=== PATIENT | male | born 1950 | race African-American/Black ===

== ENCOUNTER 2016-11-06 22:27 | Emergency (ER) | payer MEDICARE, MEDICAID ==
[~2016-11-06] VITALS: Ht 175.3 cm; Wt 83.5 kg
[~2016-11-06 22:27] MED LIST: ASTEPRO205.5 MCG1 NS; CELEBREX100 MG ORAL; CIPRO HC OTIC S10 M1 OT; FLOMAX0.4 MG ORAL; JANUVIA25 MG ORAL; LEVEMIR FL100 UNIT/1 SUBQ; MECLIZINE HCL25 MG ORAL; NASONEX17 GM NASAL; NORCO 5-325 TA1 EACH ORAL; [UNRECOGNIZED DRUG - REMARK]
[2016-11-06] MEDS ORDERED: Morphine Sulfate 4mg/ml Inj IM ONE (23:30)
[2016-11-07 00:12] VITALS: BP 151/92
[2016-11-07] MEDS ORDERED: ACETAMINOPHEN-1 EAC1 ORAL (00:31)
[2016-11-07 00:50] VITALS: BP 151/92
--- NOTE | 2016-11-07 04:08 | Emergency Room Report ---
History of Present Illness General Chief Complaint: Lower Extremity Injury Source: Patient Present Illness HPI 65-year-old male presents ED complaining of left hip pain times one day. Denies any recent trauma. Notes history of osteoarthritis and rheumatoid arthritis. States this pain is typical of a flareup. States his home medications are not helping. Pain is a 10 out of 10, throbbing, radiating down the left leg. Stable to ambulate with a cane. Denies any other injuries. No other aggravating or relieving factors. Denies any other associated symptoms Allergies: Coded Allergies: No Known Allergies (Unverified , 11/23/15) Patient History Past Medical History: DM, HTN Past Surgical History: none Pertinent Family History: none Social History: Denies: alcohol use, drug use, smoking Immunizations: UTD Reviewed Nursing Documentation: PMH: Agreed, PSxH: Agreed Nursing Documentation-PMH Hx Hypertension: Yes Hx Diabetes: Yes Hx Cancer: No - Arthritis Review of Systems All Other Systems: negative except mentioned in HPI Physical Exam Vital Signs Date Time Temp Pulse Resp B/P Pulse Ox O2 Delivery O2 Flow Rate FiO2 11/06/16 22:37 97.9 103 18 146/97 98 Room Air Sp02 EP Interpretation: reviewed, normal General Appearance: no apparent distress, alert, GCS 15, non-toxic Head: normocephalic Eyes: bilateral eye PERRL, bilateral eye normal inspection ENT: normal ENT inspection Neck: normal inspection Respiratory: normal inspection Cardiovascular #1: normal inspection Gastrointestinal: normal inspection Rectal: deferred Genitourinary: no CVA tenderness Musculoskeletal: normal range of motion, tender - L hip Neurologic: alert, oriented x3, responsive, motor strength/tone normal, sensory intact, speech normal Psychiatric: judgement/insight normal, memory normal, mood/affect normal, no suicidal/homicidal ideation Skin: normal inspection Lymphatic: normal inspection Medical Decision Making Diagnostic Impression: Primary Impression: Chronic hip pain Qualified Codes: M25.552 - Pain in left hip; G89.29 - Other chronic pain ER Course Hospital Course 65-year-old male presents ED complaining of L hip pain. no trauma Differential diagnoses include: arthritis, chronic pain, fx Clinical course Patient placed on stretcher. After initial history physical exam reveals a elderly male in no acute distress. There is tenderness to left hip however there is full range of motion with no crepitus. Patient states he's had multiple x-rays in the past which showed significant arthritis. Given there is no recent history of trauma I see no reason to repeat imaging at this time Patient given morphine with pain improved Diagnosis - chronic hip pain Stable and discharged to home with prescription for Tylenol #3. Followup with PMD. Return to ED if symptoms recur or worsen Last Vital Signs Date Time Temp Pulse Resp B/P Pulse Ox O2 Delivery O2 Flow Rate FiO2 11/07/16 00:50 97.8 95 15 151/92 99 Room Air Status: improved Disposition: HOME, SELF-CARE Condition: Stable Scripts Acetaminophen With Codeine (T#3) (TYLENOL #3 TAB*) Y Tab 1 TAB ORAL Q8H Y for For Pain, #20 TAB Prov: SCARLET LOCKHART M.D. 11/07/16 Patient Instructions: Chronic Pain SCARLET LOCKHART M.D. Nov 07, 2016 04:08
== END 2016-11-07 00:51 | disposition home or self-care (01) ==
LOC: EMR 23:00
DX: M25.552 Pain in left hip (principal); G89.29 Other chronic pain; I10 Essential (primary) hypertension; E11.9 Type 2 diabetes mellitus without complications; M19.90 Unspecified osteoarthritis, unspecified site; M06.9 Rheumatoid arthritis, unspecified
CPT/HCPCS: 96372; 99283; J2270

== ENCOUNTER 2017-03-06 13:27 | Inpatient (IN) | payer MEDICARE, MEDICAID ==
[~2017-03-06] VITALS: Ht 172.7 cm; Wt 74.8 kg
[~2017-03-06 13:27] MED LIST changes: +ACETAMINOPHEN-1 EAC1 ORAL
[2017-03-06] MEDS ORDERED: LISINOPRIL10 MG ORAL (13:40)
[2017-03-06] MEDS ORDERED: GLIMEPIRIDE1 MG ORAL (13:40)
[2017-03-06] MEDS ORDERED: FOLIC ACID1 MG ORAL (13:40)
[2017-03-06] MEDS ORDERED: HYDROCHLOROTHIA50 MG ORAL (13:40)
[2017-03-06] MEDS ORDERED: MECLIZINE HCL25 MG ORAL (13:40)
[2017-03-06] MEDS ORDERED: METHOTREXATE2.5 MG PO (13:40)
[2017-03-06] MEDS ORDERED: AMLODIPINE BESYL5 MG ORAL (13:40)
[2017-03-06] MEDS ORDERED: LEVEMIR FL100 UNIT/1 SUBQ (13:42)
[2017-03-06] MEDS ORDERED: Sodium Chloride 500ML 500 ML IVPB ONE (14:15)
[2017-03-06 14:44] LABS: BASOPHILS % (AUTO) 1.6 % (0.0-2.0); EOSINOPHILS % (AUTO) 1.2 % (0.0-3.0); LYMPHOCYTES % (AUTO) 31.3 % (20.0-45.0); MEAN CORPUSCULAR HEMOGLOBIN 29.3 PG (27.0-31.0); MEAN CORPUSCULAR HGB CONC 31.4 G/DL (32.0-36.0); MEAN CORPUSCULAR VOLUME 93 FL (80-99); MEAN PLATELET VOLUME 7.2 FL (6.5-10.1); MONOCYTES % (AUTO) 9.5 % (1.0-10.0); NEUTROPHILS % (AUTO) 56.3 % (45.0-75.0); PLATELET COUNT 258 K/UL (150-450); RED BLOOD COUNT 5.53 M/UL (4.70-6.10); RED CELL DISTRIBUTION WIDTH 12.9 % (11.6-14.8); WHITE BLOOD COUNT 8.5 K/UL (4.8-10.8)
[2017-03-06 14:57] LABS: INR 1.1 (0.9-1.1); PROTHROMBIN TIME 11.1 SEC (9.30-11.50)
[2017-03-06 15:02] LABS: ANION GAP 14 mmol/L (5-15); CALCIUM 9.8 MG/DL (8.5-10.1); CARBON DIOXIDE 23 MMOL/L (21-32); CHLORIDE 97 MMOL/L (98-107); CREATININE 0.7 MG/DL (0.55-1.30); GLOMERULAR FILTRATION RATE > 60 mL/min (>60); POTASSIUM 3.4 MMOL/L (3.5-5.1); SODIUM 133 MMOL/L (136-145)
[2017-03-06 15:07] LABS: ALANINE AMINOTRANSFERASE 22 U/L (12-78); ALBUMIN/GLOBULIN RATIO 0.7 (1.0-2.7); ASPARTATE AMINO TRANSFERASE 17 U/L (15-37); LIPASE 214 U/L (73-393); TOTAL PROTEIN 7.2 G/DL (6.4-8.2)
--- NOTE | 2017-03-06 15:10 | Emergency Room Report ---
History of Present Illness General Chief Complaint: Nausea Source: Patient, Medical Record Present Illness HPI Patient is 66-year-old male who presented after increased nausea and vomiting. Patient had a gradual onset of symptoms over the past few days. The patient reportedly had multiple episodes over the past few weeks in which she was having emesis after eating or drinking fluids. The patient denied hematemesis or bloody stools. He reports having been able to tolerate his medications. Prior history of rheumatoid arthritis as well as hypertension diabetes. He reports having some epigastric discomfort . He denies black or bloody stools. He denies prior abdominal surgery he reports having prior surgery on his low back as well as prior knee replacements Allergies: Coded Allergies: No Known Allergies (Unverified , 11/23/15) Patient History Past Medical History: see triage record Reviewed Nursing Documentation: PMH: Agreed, PSxH: Agreed Nursing Documentation-PMH Past Medical History: No History, Except For Hx Hypertension: Yes Hx Diabetes: Yes Hx Cancer: No - Arthritis Review of Systems All Other Systems: negative except mentioned in HPI Physical Exam Vital Signs Date Time Temp Pulse Resp B/P (MAP) Pulse Ox O2 Delivery O2 Flow Rate FiO2 03/06/17 13:33 98.2 108 18 134/76 99 Room Air Sp02 EP Interpretation: reviewed, normal General Appearance: alert, GCS 15, mild distress Head: atraumatic ENT: hearing grossly normal, normal voice, pharyngeal erythema Neck: normal inspection, full range of motion, supple, no bony tend Respiratory: normal inspection, lungs clear, normal breath sounds, no respiratory distress, no retraction, no wheezing Cardiovascular #1: regular rate, rhythm, no edema Gastrointestinal: normal inspection, normal bowel sounds, non tender, soft, no guarding, no hernia Genitourinary: no CVA tenderness Musculoskeletal: back normal, normal range of motion, other - multiple arthritic deformities to joint Neurologic: normal inspection, alert, oriented x3, responsive, rate engineer III-XII nml as tested, speech normal Psychiatric: normal inspection, judgement/insight normal, mood/affect normal Skin: normal inspection, normal color, no rash Medical Decision Making Diagnostic Impression: Primary Impression: Intractable nausea and vomiting Additional Impressions: Pancreatic abnormality Rheumatoid arthritis Dehydration ER Course Patient presented for abdominal pain. Differential diagnoses included ischemic bowel, appendicitis, perforated viscus, abdominal aortic aneurysm, inferior myocardial infarction, viral gastroenteritis Because of complexity of patient's case laboratory testing and imaging studies were ordered.A CT imaging of the abdomen pelvis read by radiology : Nonobstructive stones in the right kidney as described above. Questionable evidence of pancreatitis. Please correlate with lipase. Prostate enlargement Mildly distended urinary bladder. Normal appendix Atherosclerotic disease Spondylosis Accessory spleen The patient was given IV fluids as well as IV antiemetics. Urinalysis currently pending. Dr. Carlos Dutton was contacted for inpatient management due to panel physician. Labs Test 03/06/17 14:28 White Blood Count 8.5 K/UL (4.8-10.8) Red Blood Count 5.53 M/UL (4.70-6.10) Hemoglobin 16.2 G/DL (14.2-18.0) Hematocrit 51.6 % (42.0-52.0) Mean Corpuscular Volume 93 FL (80-99) Mean Corpuscular Hemoglobin 29.3 PG (27.0-31.0) Mean Corpuscular Hemoglobin Concent 31.4 G/DL (32.0-36.0) Red Cell Distribution Width 12.9 % (11.6-14.8) Platelet Count 258 K/UL (150-450) Mean Platelet Volume 7.2 FL (6.5-10.1) Neutrophils (%) (Auto) 56.3 % (45.0-75.0) Lymphocytes (%) (Auto) 31.3 % (20.0-45.0) Monocytes (%) (Auto) 9.5 % (1.0-10.0) Eosinophils (%) (Auto) 1.2 % (0.0-3.0) Basophils (%) (Auto) 1.6 % (0.0-2.0) Prothrombin Time 11.1 SEC (9.30-11.50) Prothromb Time International Ratio 1.1 (0.9-1.1) Activated Partial Thromboplast Time 29 SEC (23-33) Sodium Level 133 MMOL/L (136-145) Potassium Level 3.4 MMOL/L (3.5-5.1) Chloride Level 97 MMOL/L (98-107) Carbon Dioxide Level 23 MMOL/L (21-32) Anion Gap 14 mmol/L (5-15) Blood Urea Nitrogen 9 mg/dL (7-18) Creatinine 0.7 MG/DL (0.55-1.30) Estimat Glomerular Filtration Rate > 60 mL/min (>60) Glucose Level 186 MG/DL (74-106) Calcium Level 9.8 MG/DL (8.5-10.1) Total Bilirubin 0.9 MG/DL (0.2-1.0) Aspartate Amino Transf (AST/SGOT) 17 U/L (15-37) Alanine Aminotransferase (ALT/SGPT) 22 U/L (12-78) Alkaline Phosphatase 76 U/L (46-116) Troponin I 0.000 ng/mL (0.000-0.056) Total Protein 7.2 G/DL (6.4-8.2) Albumin 2.9 G/DL (3.4-5.0) Globulin 4.3 g/dL Albumin/Globulin Ratio 0.7 (1.0-2.7) Lipase 214 U/L (73-393) EKG Diagnostic Results Rate: normal Rhythm: NSR - 94 ST Segments: no acute changes Rhythm Strip Diag. Results EP Interpretation: yes Rhythm: NSR, no PVC's, no ectopy Last Vital Signs Date Time Temp Pulse Resp B/P (MAP) Pulse Ox O2 Delivery O2 Flow Rate FiO2 03/06/17 13:33 98.2 108 18 134/76 99 Room Air Status: unchanged Disposition: ADMITTED INPATIENT Condition: Serious Referrals: NON PHYSICIAN (PCP) Uday Avendano Mar 06, 2017 15:10
[2017-03-06 15:20] VITALS: BP 170/82
--- NOTE | 2017-03-06 16:43 | Diagnostic Imaging Report ---
Indication: Abdominal pain Technique: Continuous helical transaxial imaging of the abdomen and pelvis was obtained from the lung bases to the pubic symphysis during intravenous contrast administration. Coronal 2-D reformats were also obtained. Study obtained in a Siemens sensation [address] Automatic Exposure Control was utilized. Total Dose length Product (DLP): [address] Dose Index Volume (CTDIvol): 12.54, 0.15 mGy Comparison: None Findings: There is mild subsegmental atelectasis at both lung bases. Gallbladder is grossly unremarkable appearance. There is questionable mild stranding in the peripancreatic fat just below the pancreas. Please correlate clinically for acute pancreatitis. There is a nonobstructive stone demonstrated within the right kidney measuring about 9 mm. A second calcific punctate focus noted in the lower pole right kidney also likely a small stone. There is no hydronephrosis. The bladder is moderately distended. The prostate gland is prominent measuring 4.5 x 5.8 x 4.2 cm. The appendix is retrocecal and appears normal. Aorta is moderately calcified. No evidence of bowel obstruction, free fluid or free air. Accessory spleen nodule noted. There is no adrenal mass. There is no free fluid. There is narrowing of intervertebral discs and accompanying endplate osteophyte formation. Hypertrophied facet joints also demonstrated. Impression: Nonobstructive stones in the right kidney as described above. Questionable evidence of pancreatitis. Please correlate with lipase. Prostate enlargement Mildly distended urinary bladder. Normal appendix Atherosclerotic disease Spondylosis Accessory spleen The CT scanner at [facility] is accredited by the [employer] and the scans are performed using dose optimization techniques as appropriate to a performed exam including Automatic Exposure control.
[2017-03-06] MEDS ORDERED: Miralax 17gm pkt ORAL PRN (18:00)
[2017-03-06] MEDS ORDERED: Ketorolac 30mg Inj IV PRN (18:00)
[2017-03-06] MEDS ORDERED: Mylanta II UD 30ml ORAL PRN (18:00)
[2017-03-06] MEDS ORDERED: Nitroglycerin Subl 0.4mg tab SL PRN (18:00)
[2017-03-06 18:44] VITALS: BP 157/84
[2017-03-06 19:12] LABS: APPEARANCE,URINE SLIGHTLY CLOUDY; KETONES,URINE 3+ (NEGATIVE); LEUKOCYTE ESTERASE ,URINE 2+ (NEGATIVE); NITRITE,URINE NEGATIVE (NEGATIVE); PH,URINE 6.5 (4.5-8.0); PROTEIN,URINE 2+ (NEGATIVE); UROBILINOGEN,URINE 1 MG/DL (0.0-1.0)
[2017-03-06 19:17] LABS: BACTERIA,URINE FEW /HPF; SQUAMOUS EPITHELIAL CELL,UR FEW /LPF (NONE/OCC); WBC,URINE 20-30 /HPF (0 - 0)
[2017-03-06 19:18] LABS: TRICHOMONAS,URINE FEW /HPF
[2017-03-06 19:23] LABS: ICTOTEST NEGATIVE
[2017-03-06] MEDS ORDERED: cefTRIAXone 1 GM in D5W 55 ML IVPB ONE (19:30)
[2017-03-06 20:00] VITALS: BP 148/88
[2017-03-06] MEDS ORDERED: LANTUS SOL100 UNIT/1 SUBQ (20:19)
[2017-03-06] MEDS: Heparin 5000 units/ml inj SUBQ SCH (20:57)
[2017-03-06] MEDS: NovoLOG Insulin Flexpen SUBQ SCH (21:00)
[2017-03-07] VITALS: BP 133/78
[2017-03-07 04:00] VITALS: BP 148/81
[2017-03-07] MEDS: NovoLOG Insulin Flexpen SUBQ SCH ×4 (06:30→20:51)
--- NOTE | 2017-03-07 07:37 | Consultation ---
History of Present Illness General Date patient seen: Mar 06, 2017 Chief Complaint: Nausea Reason for Consultation: inpatient management Present Illness HPI 66-year-old male with hx of HTN and DM, rheumatoid arthritis presented to ER with CC of increased nausea and vomiting. Patient had a gradual onset of symptoms over the past few days. The patient reportedly had multiple episodes over the past few weeks in which she was having emesis after eating or drinking fluids. The patient denied hematemesis or bloody stools. . He reports having some epigastric discomfort . He denies black or bloody stools. He is admitted for intractable nausea and vomiting Allergies: Coded Allergies: No Known Allergies (Unverified , 11/23/15) Medication History Scheduled Amlodipine Besylate* (Amlodipine Besylate*), 5 MG ORAL DAILY, (Reported) Folic Acid* (Folic Acid*), 1 MG ORAL DAILY, (Reported) Glimepiride* (Glimepiride*), 2 MG ORAL BEFORE BREAKFAST, (Reported) Hydrochlorothiazide* (Hydrochlorothiazide*), 50 MG ORAL DAILY, (Reported) Insulin Glargine (Lantus), 0 SUBQ BEDTIME, (Reported) Lisinopril* (Lisinopril*), 20 MG ORAL BID, (Reported) Methotrexate Sodium* (Methotrexate*), 5 MG PO TID, (Reported) Tamsulosin HCl (Flomax), 0.4 MG ORAL DAILY, (Reported) Scheduled PRN Meclizine Hcl* (Meclizine*), 25 MG ORAL DAILY PRN for Nausea & Vomiting, ( Reported) Discontinued Medications Acetaminophen With Codeine (T#3) (Tylenol #3 Tab*), 1 TAB ORAL Q8H PRN for For Pain Discontinued Reason: Pt stopped taking med Azelastine Hcl (Astepro), 205.5 MCG NS DAILY, (Reported) Discontinued Reason: Pt stopped taking med Celecoxib* (Celebrex*), 200 MG ORAL TWICE A DAY, (Reported) Discontinued Reason: Pt stopped taking med Ciprofloxacin/Hydrocortisone (Cipro Hc Otic Suspension), 10 ML OT BID Discontinued Reason: Pt stopped taking med Hydrocodone Bit/Acetaminophen 5-325* (Boyds 5-325*), 1 TAB ORAL Q6H PRN for For Pain Discontinued Reason: Pt stopped taking med Insulin Detemir (Levemir Flexpen), 20 UNITS SUBQ AC, (Reported) Discontinued Reason: Pt stopped taking med Insulin Detemir (Levemir Flexpen), 14 UNITS SUBQ BEDTIME, (Reported) Discontinued Reason: Pt stopped taking med Insulin Detemir (Levemir Flexpen), 24 SUBQ AC, (Reported) Discontinued Reason: Pt stopped taking med Mometasone Furoate (Nasonex), 2 SPRAYS NASAL DAILY, (Reported) Discontinued Reason: Pt stopped taking med Patient History Healthcare decision maker Resuscitation status Full Code Advanced Directive on File Past Medical/Surgical History Past Medical/Surgical History: (1) Diabetes mellitus (2) Hypertension Review of Systems Constitutional: Reports: malaise Gastrointestinal: Reports: nausea, vomiting Physical Exam General Appearance: WD/WN, no apparent distress Lines, tubes and drains: peripheral HEENT: normocephalic, atraumatic Neck: non-tender, normal alignment Respiratory/Chest: chest wall non-tender, lungs clear Breasts: no masses Cardiovascular/Chest: normal peripheral pulses Abdomen: normal bowel sounds, non tender, hyperactive bowel sounds Genitourinary/Rectal: normal genital exam, heme negative stool Extremities: non-tender Last 24 Hour Vital Signs Date Time Temp Pulse Resp B/P (MAP) Pulse Ox O2 Delivery O2 Flow Rate FiO2 03/07/17 04:00 89 03/07/17 04:00 97.5 87 18 148/81 97 Room Air 03/07/17 00:00 85 03/07/17 00:00 98.6 85 18 133/78 96 Room Air 03/06/17 21:00 94 03/06/17 20:00 98.6 104 18 148/88 95 Room Air 03/06/17 19:30 98.6 98 18 148/84 99 Room Air 03/06/17 18:44 95 20 157/84 99 Room Air 03/06/17 15:20 98.6 96 18 170/82 99 Room Air 03/06/17 13:33 98.2 108 18 134/76 99 Room Air Laboratory Tests Test 03/06/17 14:28 03/06/17 17:00 White Blood Count 8.5 K/UL (4.8-10.8) Red Blood Count 5.53 M/UL (4.70-6.10) Hemoglobin 16.2 G/DL (14.2-18.0) Hematocrit 51.6 % (42.0-52.0) Mean Corpuscular Volume 93 FL (80-99) Mean Corpuscular Hemoglobin 29.3 PG (27.0-31.0) Mean Corpuscular Hemoglobin Concent 31.4 G/DL (32.0-36.0) L Red Cell Distribution Width 12.9 % (11.6-14.8) Platelet Count 258 K/UL (150-450) Mean Platelet Volume 7.2 FL (6.5-10.1) Neutrophils (%) (Auto) 56.3 % (45.0-75.0) Lymphocytes (%) (Auto) 31.3 % (20.0-45.0) Monocytes (%) (Auto) 9.5 % (1.0-10.0) Eosinophils (%) (Auto) 1.2 % (0.0-3.0) Basophils (%) (Auto) 1.6 % (0.0-2.0) Prothrombin Time 11.1 SEC (9.30-11.50) Prothromb Time International Ratio 1.1 (0.9-1.1) Activated Partial Thromboplast Time 29 SEC (23-33) Sodium Level 133 MMOL/L (136-145) L Potassium Level 3.4 MMOL/L (3.5-5.1) L Chloride Level 97 MMOL/L (98-107) L Carbon Dioxide Level 23 MMOL/L (21-32) Anion Gap 14 mmol/L (5-15) Blood Urea Nitrogen 9 mg/dL (7-18) Creatinine 0.7 MG/DL (0.55-1.30) Estimat Glomerular Filtration Rate > 60 mL/min (>60) Glucose Level 186 MG/DL (74-106) H Calcium Level 9.8 MG/DL (8.5-10.1) Total Bilirubin 0.9 MG/DL (0.2-1.0) Aspartate Amino Transf (AST/SGOT) 17 U/L (15-37) Alanine Aminotransferase (ALT/SGPT) 22 U/L (12-78) Alkaline Phosphatase 76 U/L (46-116) Troponin I 0.000 ng/mL (0.000-0.056) Total Protein 7.2 G/DL (6.4-8.2) Albumin 2.9 G/DL (3.4-5.0) L Globulin 4.3 g/dL Albumin/Globulin Ratio 0.7 (1.0-2.7) L Lipase 214 U/L (73-393) Urine Color [place] Urine Appearance Slightly cloudy Urine pH 6.5 (4.5-8.0) Urine Specific [place] 1.005 (1.005-1.035) Urine Protein 2+ (NEGATIVE) H Urine Glucose (UA) Negative (NEGATIVE) Urine Ketones 3+ (NEGATIVE) H Urine Occult Blood 1+ (NEGATIVE) H Urine Nitrite Negative (NEGATIVE) Urine Bilirubin Negative (NEGATIVE) Urine Ictotest Negative Urine Urobilinogen 1 MG/DL (0.0-1.0) H Urine Leukocyte Esterase 2+ (NEGATIVE) H Urine RBC 2-4 /HPF (0 - 0) H Urine WBC 20-30 /HPF (0 - 0) H Urine Squamous Epithelial Cells Few /LPF (NONE/OCC) Urine Bacteria Few /HPF (NONE) Urine Trichomonas Few /HPF (NONE) H Height (Feet): 5 Height (Inches): 8.00 Weight (Pounds): 165 Medications Current Medications Medications (Trade) Dose Ordered Sig/Cyndi Route PRN Reason Start Time Stop Time Status Last Admin Dose Admin Acetaminophen (Tylenol) 650 mg Q4H PRN ORAL fever 03/06/17 18:00 04/05/17 17:59 Al Hydroxide/Mg Hydroxide (Mylanta II) 30 ml Q6H PRN ORAL dyspepsia 03/06/17 18:00 04/05/17 17:59 Amlodipine Besylate (Norvasc) 5 mg DAILY ORAL 03/07/17 09:00 04/06/17 08:59 Dextrose (Dextrose 50%) STAT PRN IV Hypoglycemia 03/06/17 18:00 04/05/17 17:59 Diphenhydramine HCl (Benadryl) 25 mg Q6H PRN ORAL Itching/Pruritis 03/06/17 18:00 04/05/17 17:59 Heparin Sodium (Porcine) (Heparin 5000 units/ml) 5,000 units EVERY 12 HOURS SUBQ 03/06/17 21:00 04/05/17 20:59 03/06/17 20:57 Insulin Aspart (NovoLOG) BEFORE MEALS AND HS SUBQ 03/06/17 21:00 04/05/17 20:59 03/06/17 21:00 Ketorolac Tromethamine (Toradol 30mg) 30 mg Q6H PRN IV Moderate Pain (scale 4-6) 03/06/17 18:00 03/11/17 17:59 03/06/17 20:54 Lisinopril (Prinivil) 20 mg DAILY ORAL 03/07/17 09:00 04/06/17 08:59 Nitroglycerin (Ntg) 0.4 mg Q5M X 3 DOSES PRN SL Prn Chest Pain 03/06/17 18:00 04/05/17 17:59 Ondansetron HCl (Zofran) 4 mg Q6H PRN IVP Nausea & Vomiting 03/06/17 18:00 04/05/17 17:59 Polyethylene Glycol (Miralax) 17 gm HSPRN PRN ORAL Constipation 03/06/17 18:00 04/05/17 17:59 Sodium Chloride 1,000 ml @ 50 mls/hr Q20H IV 03/06/17 18:45 04/05/17 18:44 03/06/17 18:45 Tamsulosin HCl (Flomax) 0.4 mg DAILY ORAL 03/07/17 09:00 04/06/17 08:59 Temazepam (Restoril) 15 mg HSPRN PRN ORAL Insomnia 03/06/17 18:00 03/13/17 17:59 Assessment/Plan Problem List: (1) Intractable nausea and vomiting ICD Codes: R11.2 - Nausea with vomiting, unspecified SNOMED: 735642584, 118303266 (2) Hypertension ICD Codes: I10 - Essential (primary) hypertension SNOMED: 34668288 (3) Diabetes mellitus ICD Codes: E11.9 - Type 2 diabetes mellitus without complications SNOMED: 26112881 (4) Rheumatoid arthritis ICD Codes: M06.9 - Rheumatoid arthritis, unspecified SNOMED: 33795464 Assessment/Plan npo Symptomatic treatment sliding scale IV fluids check electrolytes supplement K Flagyl for Trichomonas in Urine JAKOB TAY Mar 07, 2017 07:37
--- NOTE | 2017-03-07 07:43 | Pulmonology Progress Note ---
Assessment/Plan Problems: (1) Intractable nausea and vomiting (2) Hypertension (3) Diabetes mellitus (4) Rheumatoid arthritis Assessment/Plan feeling better keep NPO until seen by GI keep IV fluids sliding scale med/surg Subjective ROS Limited/Unobtainable: No Interval Events: feeling much better Allergies: Coded Allergies: No Known Allergies (Unverified , 11/23/15) Objective Last 24 Hour Vital Signs Date Time Temp Pulse Resp B/P (MAP) Pulse Ox O2 Delivery O2 Flow Rate FiO2 03/07/17 04:00 89 03/07/17 04:00 97.5 87 18 148/81 97 Room Air 03/07/17 00:00 85 03/07/17 00:00 98.6 85 18 133/78 96 Room Air 03/06/17 21:00 94 03/06/17 20:00 98.6 104 18 148/88 95 Room Air 03/06/17 19:30 98.6 98 18 148/84 99 Room Air 03/06/17 18:44 95 20 157/84 99 Room Air 03/06/17 15:20 98.6 96 18 170/82 99 Room Air 03/06/17 13:33 98.2 108 18 134/76 99 Room Air General Appearance: WD/WN HEENT: normocephalic, atraumatic, PERRL Respiratory/Chest: chest wall non-tender, lungs clear Cardiovascular: no JVD Extremities: no cyanosis Skin: no rash Laboratory Tests 03/06/17 14:28: White Blood Count 8.5, Red Blood Count 5.53, Hemoglobin 16.2, Hematocrit 51.6, Mean Corpuscular Volume 93, Mean Corpuscular Hemoglobin 29.3, Mean Corpuscular Hemoglobin Concent 31.4L, Red Cell Distribution Width 12.9, Platelet Count 258, Mean Platelet Volume 7.2, Neutrophils (%) (Auto) 56.3, Lymphocytes (%) (Auto) 31.3, Monocytes (%) (Auto) 9.5, Eosinophils (%) (Auto) 1.2, Basophils (%) (Auto ) 1.6, Prothrombin Time 11.1, Prothromb Time International Ratio 1.1, Activated Partial Thromboplast Time 29, Sodium Level 133L, Potassium Level 3.4L, Chloride Level 97L, Carbon Dioxide Level 23, Anion Gap 14, Blood Urea Nitrogen 9, Creatinine 0.7, Estimat Glomerular Filtration Rate > 60, Glucose Level 186H, Calcium Level 9.8, Total Bilirubin 0.9, Aspartate Amino Transf (AST/SGOT) 17, Alanine Aminotransferase (ALT/SGPT) 22, Alkaline Phosphatase 76, Troponin I 0.000, Total Protein 7.2, Albumin 2.9L, Globulin 4.3, Albumin/Globulin Ratio 0.7L, Lipase 214 03/06/17 17:00: Urine Color [place], Urine Appearance Slightly cloudy, Urine pH 6.5, Urine Specific [place] 1.005, Urine Protein 2+H, Urine Glucose (UA) Negative, Urine Ketones 3+H, Urine Occult Blood 1+H, Urine Nitrite Negative, Urine Bilirubin Negative, Urine Ictotest Negative, Urine Urobilinogen 1H, Urine Leukocyte Esterase 2+H, Urine RBC 2-4H, Urine WBC 20-30H, Urine Squamous Epithelial Cells Few, Urine Bacteria Few, Urine Trichomonas FewH Current Medications Medications (Trade) Dose Ordered Sig/Cyndi Route PRN Reason Start Time Stop Time Status Last Admin Dose Admin Acetaminophen (Tylenol) 650 mg Q4H PRN ORAL fever 03/06/17 18:00 04/05/17 17:59 Al Hydroxide/Mg Hydroxide (Mylanta II) 30 ml Q6H PRN ORAL dyspepsia 03/06/17 18:00 04/05/17 17:59 Amlodipine Besylate (Norvasc) 5 mg DAILY ORAL 03/07/17 09:00 04/06/17 08:59 Dextrose (Dextrose 50%) STAT PRN IV Hypoglycemia 03/06/17 18:00 04/05/17 17:59 Diphenhydramine HCl (Benadryl) 25 mg Q6H PRN ORAL Itching/Pruritis 03/06/17 18:00 04/05/17 17:59 Heparin Sodium (Porcine) (Heparin 5000 units/ml) 5,000 units EVERY 12 HOURS SUBQ 03/06/17 21:00 04/05/17 20:59 03/06/17 20:57 Insulin Aspart (NovoLOG) BEFORE MEALS AND HS SUBQ 03/06/17 21:00 04/05/17 20:59 03/06/17 21:00 Ketorolac Tromethamine (Toradol 30mg) 30 mg Q6H PRN IV Moderate Pain (scale 4-6) 03/06/17 18:00 03/11/17 17:59 03/06/17 20:54 Lisinopril (Prinivil) 20 mg DAILY ORAL 03/07/17 09:00 04/06/17 08:59 Nitroglycerin (Ntg) 0.4 mg Q5M X 3 DOSES PRN SL Prn Chest Pain 03/06/17 18:00 04/05/17 17:59 Ondansetron HCl (Zofran) 4 mg Q6H PRN IVP Nausea & Vomiting 03/06/17 18:00 04/05/17 17:59 Polyethylene Glycol (Miralax) 17 gm HSPRN PRN ORAL Constipation 03/06/17 18:00 04/05/17 17:59 Sodium Chloride 1,000 ml @ 50 mls/hr Q20H IV 03/06/17 18:45 04/05/17 18:44 03/06/17 18:45 Tamsulosin HCl (Flomax) 0.4 mg DAILY ORAL 03/07/17 09:00 04/06/17 08:59 Temazepam (Restoril) 15 mg HSPRN PRN ORAL Insomnia 03/06/17 18:00 03/13/17 17:59 JAKOB TAY Mar 07, 2017 07:43
[2017-03-07 07:53] LABS: BASOPHILS % (AUTO) 1.7 % (0.0-2.0); EOSINOPHILS % (AUTO) 1.8 % (0.0-3.0); LYMPHOCYTES % (AUTO) 34.1 % (20.0-45.0); MEAN CORPUSCULAR HEMOGLOBIN 30.2 PG (27.0-31.0); MEAN CORPUSCULAR HGB CONC 32.4 G/DL (32.0-36.0); MEAN CORPUSCULAR VOLUME 93 FL (80-99); MEAN PLATELET VOLUME 7.3 FL (6.5-10.1); MONOCYTES % (AUTO) 9.2 % (1.0-10.0); NEUTROPHILS % (AUTO) 53.2 % (45.0-75.0); PLATELET COUNT 232 K/UL (150-450); RED BLOOD COUNT 4.89 M/UL (4.70-6.10); RED CELL DISTRIBUTION WIDTH 13.1 % (11.6-14.8); WHITE BLOOD COUNT 6.5 K/UL (4.8-10.8)
[2017-03-07 08:00] VITALS: BP 149/83
[2017-03-07 08:11] LABS: INR 1.1 (0.9-1.1); PROTHROMBIN TIME 11.3 SEC (9.30-11.50)
[2017-03-07 08:18] LABS: ALANINE AMINOTRANSFERASE 18 U/L (12-78); ALBUMIN/GLOBULIN RATIO 0.6 (1.0-2.7); AMYLASE 45 U/L (25-115); ANION GAP 10 mmol/L (5-15); ASPARTATE AMINO TRANSFERASE 15 U/L (15-37); CALCIUM 8.8 MG/DL (8.5-10.1); CARBON DIOXIDE 25 MMOL/L (21-32); CHLORIDE 101 MMOL/L (98-107); CREATININE 0.7 MG/DL (0.55-1.30); GLOMERULAR FILTRATION RATE > 60 mL/min (>60); LIPASE 176 U/L (73-393); POTASSIUM 3.5 MMOL/L (3.5-5.1); SODIUM 136 MMOL/L (136-145); THYROID STIMULATING HORMONE 0.416 uiU/mL (0.360-3.740); TOTAL PROTEIN 6.5 G/DL (6.4-8.2)
[2017-03-07] MEDS ORDERED: Lisinopril 20mg tab ORAL SCH (09:00)
[2017-03-07] MEDS ORDERED: Tamsulosin 0.4mg cap ORAL SCH (09:00)
[2017-03-07] MEDS ORDERED: Levemir Flexpen SUBQ SCH (09:00)
[2017-03-07 09:53] LABS: HEMOGLOBIN A1C 8.5 % (4.3-6.0)
[2017-03-07] MEDS: Heparin 5000 units/ml inj SUBQ SCH ×2 (09:54→20:53)
[2017-03-07 12:00] VITALS: BP 131/70
[2017-03-07] MEDS ORDERED: Nitroglycerin Subl 0.4mg tab SL PRN (13:30)
[2017-03-07] MEDS ORDERED: Piperacillin/Tazobactam 3.375 GM in D5W 110 ML IVPB SCH (14:00)
[2017-03-07] MEDS ORDERED: Zosyn 3.375gm q8h **Extended infusion IVPB SCH (14:00)
[2017-03-07 15:30] VITALS: BP 123/71
[2017-03-07] MEDS: Zosyn 3.375gm/50ml Premix 50 ML IVPB SCH ×2 (17:26→22:21)
[2017-03-07] MEDS ORDERED: Mylanta II UD 30ml ORAL PRN (18:00)
[2017-03-07] MEDS ORDERED: Miralax 17gm pkt ORAL PRN (18:00)
[2017-03-07 20:00] VITALS: BP 132/67
--- NOTE | 2017-03-07 20:00 | Consultation ---
DATE OF CONSULTATION: 03/07/2017 ENDOCRINOLOGY CONSULTATION CONSULTING PHYSICIAN: Jairon Armijo M.D. REFERRING PHYSICIAN: Carlos Dutton D.O. REASON FOR CONSULTATION: Diabetes management. HISTORY OF PRESENT ILLNESS: The patient is a 66-year-old male with past medical history of diabetes, diagnosed 2 years ago on insulin, one shot a day at home. Also history of hypertension, rheumatoid arthritis, who presents with abdominal pain, admitted for observation and treatment. I was called to manage diabetes. PAST MEDICAL HISTORY: 1. Hypertension. 2. Diabetes. 3. Rheumatoid arthritis. 4. Hyperlipidemia. FAMILY HISTORY: Diabetes. SOCIAL HISTORY: Denies any smoking, alcohol, or drug use. REVIEW OF SYSTEMS: A 12 point review of systems was performed. FAMILY HISTORY: Family history of diabetes. REVIEW OF SYSTEMS: A 12-point review of systems was performed, pertinent positives and negatives are as mentioned in the history of present illness. PHYSICAL EXAMINATION: VITAL SIGNS: Pulse of 108, temperature 98.2, respiratory rate 18, and blood pressure 124/76. HEENT: Pupils are equal and reactive to light. Sclerae are anicteric. NECK: No JVD or thyromegaly. LUNGS: Clear. HEART: Regular rate and rhythm. ABDOMEN: Positive bowel sounds. EXTREMITIES: No clubbing, cyanosis, or edema. LABORATORY VALUES: Sodium 132, potassium 3.4, chloride 97, bicarb 23, BUN 9, creatinine 0.7, glucose of 186, A1c is pending. TSH is pending. DIAGNOSES: 1. Intractable nausea and vomiting. 2. Abdominal pain. 3. Diabetes, out of control. 4. Hypertension. PLAN: 1. Levemir 8 units daily. 2. Sliding scale NovoLog. 3. Adjust insulin order once the diet is initiated. 4. Follow the patient closely during this hospital stay for the management of diabetes. Thank you Dr. Dutton for the courtesy of this consultation Jairon Armijo M.D. DR: AMELIA/POWER JOB#: [id number] CC:
--- NOTE | 2017-03-07 20:45 | History and Physical Report ---
DATE OF ADMISSION: 03/06/2017 TIME SEEN: At 8 a.m. CONSULTANTS: 1. Carlos Dutton D.O. 2. Steve Lowery M.D. 3. Mega Rodriguez M.D. 4. Jairon Armijo M.D. CHIEF COMPLAINT: Epigastric pain, nausea, and vomiting. BRIEF HISTORY: This is a 66-year-old male who lives at home presents with two days of increased epigastric pain, nausea, vomiting, diarrhea and slight fever. The patient came to [facility] diagnosed with above and admitted to telemetry for further care. Currently, calm, feeling little bit better and slight weak. No complaint. PAST MEDICAL HISTORY: Include NIDDM and rheumatoid arthritis. PAST SURGICAL HISTORY: Neck, back and knee. MEDICATIONS: Include metronidazole, Norvasc, Prinivil, Flomax, Levemir, heparin, NovoLog, and Tylenol. ALLERGIES: Denies. SOCIAL HISTORY: No smoking or alcohol. No intravenous drug abuse. FAMILY HISTORY: Noncontributory. REVIEW OF SYSTEMS: No chest pain/shortness of breath. No nausea, vomiting, or diarrhea. PHYSICAL EXAMINATION: GENERAL: Calm in bed, oriented x3, in no acute distress. VITAL SIGNS: Show temperature is 97 degrees, pulse 87, respirations 18, and blood pressure 140/81. CARDIOVASCULAR: No murmur. LUNGS: Distant and clear. ABDOMEN: Bowel sounds are positive. Nontender and nondistended. EXTREMITIES: No cyanosis, clubbing, or edema. NEUROLOGICAL: The patient moves all extremities slightly weak. LABORATORY DATA: Show CBC is normal. Albumin 2.5. Otherwise BMP is normal. INR is 1.1. PTT is 29. Urinalysis show 3+ ketones, and 1 to 2+ leukocyte esterase. ASSESSMENT: 1. Epigastric pain. 2. Fever. 3. Urinary tract infection. 4. Nausea. 5. Vomiting. 6. Diarrhea. 7. Rheumatoid arthritis. 8. Iej-livvfan-sbykbtjqa diabetes mellitus. 9. Malnutrition. PLAN: 1. Continue premedications. 2. IV fluids. 3. Antibiotics per Infectious Disease. 4. OT, PT, and dietary evaluation. 5. Antiemetic as needed. 6. Resume home medications. 7. Dr. Rodriguez, Dr. Lowery, Dr. Armijo, and Dr. Owens to consult. Carlos Dutton D.O. DR: CLYDE JOB#: [id number] CC:
--- NOTE | 2017-03-07 21:00 | Consultation ---
DATE OF CONSULTATION: 03/07/2017 CONSULTING PHYSICIAN: Reymundo Lowery M.D. REFERRING PHYSICIAN: Carlos Dutton D.O. CHIEF COMPLAINT: Abdominal pain. HISTORY OF PRESENT ILLNESS: This is a very pleasant 66-year-old male without any significant medical problems except for diabetes and rheumatoid arthritis. The patient presents with 8 days of nausea, vomiting, abdominal pain, not tolerating anything. According to him, he never had this problem before. Denies any alcohol. Denies any tobacco usage. The patient states today he is already feeling better. No diarrhea. No blood per rectum. No prior history of endoscopy or colonoscopy. No significant weight loss. The patient in the ER had a CT of the abdomen and pelvis, which was suspicious for pancreatitis, although the labs were normal and the patient was admitted for that. PAST MEDICAL HISTORY: 1. Diabetes type 2 for 3 years. 2. Rheumatoid arthritis. PAST SURGICAL HISTORY: Back surgeries and knee surgeries. ALLERGIES: No known drug allergies. MEDICATIONS: Please see medication reconciliation list. SOCIAL HISTORY: The patient denies any tobacco, alcohol, or IV drug abuse. FAMILY HISTORY: Mother with breast cancer, sister with breast cancer, and uncle with prostate cancer. REVIEW OF SYSTEMS: Ten-point review of systems was performed and pertinent positives in history of present illness. PHYSICAL EXAMINATION: GENERAL: A well-developed, well-nourished male, in no acute distress. VITAL SIGNS: Temperature 97.9, pulse is 86, respirations 18, and blood pressure is 149/83. HEENT: Normocephalic and atraumatic. Sclerae anicteric. NECK: Supple. No evidence of obvious lymphadenopathy. CARDIOVASCULAR: Regular rhythm. Plus S1 and S2. No obvious murmur. LUNGS: Decreased breath sounds bilaterally. ABDOMEN: Positive bowel sounds. Soft. Minimal tenderness to palpation in the epigastric area and in the left upper quadrant. No rebound. No guarding. EXTREMITIES: No cyanosis. No clubbing. No edema. LABORATORY DATA: CBC is normal. Chem-7 is grossly normal. ASSESSMENT AND PLAN: This is a 66-year-old male with abdominal pain. At this time, its etiology is unknown, possibly pancreatitis. Even the patient had abdominal pain with vomiting, but there is no elevated lipase, although CT was suspicious for it. PLAN: Plan to start liquid diet. Continue on IV fluids. Pain management. The patient will need outpatient followup for endoscopy and colonoscopy. I want to thank, Dr. Carlos Dutton, for this kind referral. Reymundo Lowery M.D. DR: EMMY JOB#: [id number] CC: Carlos Dutton D.O.
--- NOTE | 2017-03-07 21:15 | Consultation ---
DATE OF CONSULTATION: 03/07/2017 INFECTIOUS DISEASES CONSULTATION CONSULTING PHYSICIAN: Lizzeth Fierro M.D REFERRING PHYSICIAN: Carlos Dutton D.O. This consultation has been done on behalf of Dr. Jason Griffin. HISTORY OF PRESENTING ILLNESS: This is a 66-year-old gentleman with history of diabetes, hypertension, and rheumatoid arthritis, who presented to [facility] with fever, chills, nausea, and vomiting since the last 1 week. He did not have any hematemesis. An Infectious Diseases consultation has been obtained for antibiotics. PAST MEDICAL HISTORY: 1. History of diabetes. 2. History of hypertension. 3. History of rheumatoid arthritis. MEDICATIONS: As an inpatient, he is on Flagyl, Protonix, Norvasc, lisinopril, Flomax, subcutaneous heparin, insulin, Tylenol, Restoril, Zofran, MiraLAX, Benadryl, Mylanta and nitroglycerin. ALLERGIES: No known drug allergies. SOCIAL HISTORY: He does not smoke, drink, or use drugs. FAMILY HISTORY: Positive for breast cancer in his mother and sister and prostate cancer in his uncle. REVIEW OF SYSTEMS: RESPIRATORY: He had fever and chills. He does have a cough. No shortness of breath or chest pain. CARDIAC: No chest pain. No palpitations. No dizziness. No syncope. GASTROINTESTINAL: He had nausea and vomiting, which has resolved now. No abdominal pain or diarrhea. GENITOURINARY: No dysuria. No hematuria. PHYSICAL EXAMINATION: VITAL SIGNS: Temperature of 97.9, T-max of 98.6, pulse of 86, respiratory rate of 18, blood pressure 149/83, and O2 saturation of 98%. HEENT: Pupils are equally reactive to light and accommodation. Mouth appears clean without thrush. NECK: Supple. No adenopathy. No JVD. CARDIOVASCULAR: Regular rate and rhythm. No murmurs. LUNGS: Clear to auscultation bilaterally. No crackles. No wheezes. ABDOMEN: Soft and nontender. No organomegaly. EXTREMITIES: No cyanosis. No clubbing. No edema. LABORATORY AND DIAGNOSTIC DATA: White count 6.5, hemoglobin 14.8, hematocrit 45.6, MCV 93, and platelet count of 232 with neutrophils of 53%. Sodium 136, potassium 3.5, chloride 101, bicarbonate 25, BUN 9, creatinine 0.7, and glucose 91. Calcium 8.8. Total bilirubin 0.6. AST 15, ALT 18, and alkaline phosphatase 63. Total protein 6.5. Albumin 2.5. Amylase of 45. Lipase of 176. UA showing 20 to 30 white cells. Urine cultures are pending. CT of the abdomen and pelvis showing nonobstructive stones in the right kidney, possible questionable pancreatitis, prostate enlargement, mildly distended urinary bladder, normal appendix, atherosclerotic disease, spondylosis noted, and accessory spleen noted. ASSESSMENT: 1. This is a 66-year-old gentleman with diabetes, hypertension, and rheumatoid arthritis who comes in with fever, nausea, and vomiting. It would be concerned regarding pancreatitis, urinary tract infection. 2. Nephrolithiasis. 3. Diabetes. 4. Hypertension. PLAN: 1. Continue Flagyl for now. 2. We will start the patient on Zosyn. 3. We will follow up cultures and adjust antibiotics accordingly. I would like to thank, Dr. Carlos Dutton, for this consultation. Lizzeth Fierro M.D. DR: ASHLEY JOB#: [id number] CC: John Sanford
[2017-03-08] VITALS: BP 119/61
[2017-03-08 04:00] VITALS: BP 153/76
[2017-03-08] MEDS: NovoLOG Insulin Flexpen SUBQ SCH ×4 (06:30→20:55)
--- NOTE | 2017-03-08 06:34 | General Progress Note ---
Assessment/Plan Problem List: (1) Rheumatoid arthritis ICD Codes: M06.9 - Rheumatoid arthritis, unspecified SNOMED: 24591011 (2) Diabetes mellitus ICD Codes: E11.9 - Type 2 diabetes mellitus without complications SNOMED: 76820704 (3) Hypertension ICD Codes: I10 - Essential (primary) hypertension SNOMED: 80509341 Assessment/Plan advance diet fu repeat labs colace and miralax out patient colonoscopy Subjective ROS Limited/Unobtainable: Yes Allergies: Coded Allergies: No Known Allergies (Unverified , 11/23/15) Subjective feeling better Objective Last 24 Hour Vital Signs Date Time Temp Pulse Resp B/P (MAP) Pulse Ox O2 Delivery O2 Flow Rate FiO2 03/08/17 04:00 97.9 90 20 153/76 98 Room Air 03/08/17 00:00 97.8 89 21 119/61 100 Room Air 03/07/17 20:00 98.2 92 21 132/67 99 Room Air 03/07/17 15:30 98.1 97 20 123/71 95 Room Air 03/07/17 12:00 97.7 94 18 131/70 99 Room Air 03/07/17 09:53 149/83 03/07/17 09:53 86 149/83 03/07/17 08:00 97.9 86 18 149/83 98 Room Air 03/07/17 08:00 90 Laboratory Tests 03/07/17 07:30: White Blood Count 6.5, Red Blood Count 4.89, Hemoglobin 14.8, Hematocrit 45.6, Mean Corpuscular Volume 93, Mean Corpuscular Hemoglobin 30.2, Mean Corpuscular Hemoglobin Concent 32.4, Red Cell Distribution Width 13.1, Platelet Count 232, Mean Platelet Volume 7.3, Neutrophils (%) (Auto) 53.2, Lymphocytes (%) (Auto) 34.1, Monocytes (%) (Auto) 9.2, Eosinophils (%) (Auto) 1.8, Basophils (%) (Auto ) 1.7, Prothrombin Time 11.3, Prothromb Time International Ratio 1.1, Activated Partial Thromboplast Time 30, Sodium Level 136, Potassium Level 3.5, Chloride Level 101, Carbon Dioxide Level 25, Anion Gap 10, Blood Urea Nitrogen 9, Creatinine 0.7, Estimat Glomerular Filtration Rate > 60, Glucose Level 91, Hemoglobin A1c 8.9H, Calcium Level 8.8, Total Bilirubin 0.6, Aspartate Amino Transf (AST/SGOT) 15, Alanine Aminotransferase (ALT/SGPT) 18, Alkaline Phosphatase 63, Total Protein 6.5, Albumin 2.5L, Globulin 4.0, Albumin/Globulin Ratio 0.6L, Amylase Level 45, Lipase 176, Thyroid Stimulating Hormone (TSH) 0.416 Height (Feet): 5 Height (Inches): 8.00 Weight (Pounds): 165 General Appearance: alert EENT: normal ENT inspection Neck: supple Cardiovascular: normal rate Respiratory/Chest: lungs clear Abdomen: normal bowel sounds, non tender, soft Extremities: non-tender SYLVIE ESPINOZA Mar 08, 2017 06:34
[2017-03-08] MEDS: Zosyn 3.375gm/50ml Premix 50 ML IVPB SCH ×3 (06:36→22:02)
--- NOTE | 2017-03-08 07:01 | General Progress Note ---
Assessment/Plan Problem List: (1) Diabetes mellitus ICD Codes: E11.9 - Type 2 diabetes mellitus without complications SNOMED: 40199195 (2) Hypertension ICD Codes: I10 - Essential (primary) hypertension SNOMED: 62863744 Assessment/Plan continue Levemir 8 units daily diet is advanced continue SSI Subjective Allergies: Coded Allergies: No Known Allergies (Unverified , 11/23/15) All Systems: reviewed and negative except above Subjective feeling better Objective Last 24 Hour Vital Signs Date Time Temp Pulse Resp B/P (MAP) Pulse Ox O2 Delivery O2 Flow Rate FiO2 03/08/17 04:00 97.9 90 20 153/76 98 Room Air 03/08/17 00:00 97.8 89 21 119/61 100 Room Air 03/07/17 20:00 98.2 92 21 132/67 99 Room Air 03/07/17 15:30 98.1 97 20 123/71 95 Room Air 03/07/17 12:00 97.7 94 18 131/70 99 Room Air 03/07/17 09:53 149/83 03/07/17 09:53 86 149/83 03/07/17 08:00 97.9 86 18 149/83 98 Room Air 03/07/17 08:00 90 Laboratory Tests 03/07/17 07:30: White Blood Count 6.5, Red Blood Count 4.89, Hemoglobin 14.8, Hematocrit 45.6, Mean Corpuscular Volume 93, Mean Corpuscular Hemoglobin 30.2, Mean Corpuscular Hemoglobin Concent 32.4, Red Cell Distribution Width 13.1, Platelet Count 232, Mean Platelet Volume 7.3, Neutrophils (%) (Auto) 53.2, Lymphocytes (%) (Auto) 34.1, Monocytes (%) (Auto) 9.2, Eosinophils (%) (Auto) 1.8, Basophils (%) (Auto ) 1.7, Prothrombin Time 11.3, Prothromb Time International Ratio 1.1, Activated Partial Thromboplast Time 30, Sodium Level 136, Potassium Level 3.5, Chloride Level 101, Carbon Dioxide Level 25, Anion Gap 10, Blood Urea Nitrogen 9, Creatinine 0.7, Estimat Glomerular Filtration Rate > 60, Glucose Level 91, Hemoglobin A1c 8.9H, Calcium Level 8.8, Total Bilirubin 0.6, Aspartate Amino Transf (AST/SGOT) 15, Alanine Aminotransferase (ALT/SGPT) 18, Alkaline Phosphatase 63, Total Protein 6.5, Albumin 2.5L, Globulin 4.0, Albumin/Globulin Ratio 0.6L, Amylase Level 45, Lipase 176, Thyroid Stimulating Hormone (TSH) 0.416 Height (Feet): 5 Height (Inches): 8.00 Weight (Pounds): 165 General Appearance: no apparent distress EENT: pale conjunctivae Neck: normal alignment Cardiovascular: normal rate Respiratory/Chest: lungs clear Abdomen: normal bowel sounds Edema: no edema noted Arm (L), no edema noted Arm (R), no edema noted Leg (L), no edema noted Leg (R), no edema noted Pedal (L), no edema noted Pedal (R), no edema noted Generalized Objective Current Medications Medications (Trade) Dose Ordered Sig/Cyndi Route PRN Reason Start Time Stop Time Status Last Admin Dose Admin Acetaminophen (Tylenol) 650 mg Q4H PRN ORAL fever 03/07/17 14:00 04/05/17 17:59 Al Hydroxide/Mg Hydroxide (Mylanta II) 30 ml Q6H PRN ORAL dyspepsia 03/07/17 18:00 04/05/17 17:59 Amlodipine Besylate (Norvasc) 5 mg DAILY ORAL 03/08/17 09:00 04/06/17 08:59 Dextrose (Dextrose 50%) STAT PRN IV Hypoglycemia 03/08/17 08:15 04/06/17 08:14 Diphenhydramine HCl (Benadryl) 25 mg Q6H PRN ORAL Itching/Pruritis 03/07/17 18:00 04/05/17 17:59 Docusate Sodium (Colace) 100 mg TWICE A DAY ORAL 03/08/17 09:00 04/07/17 08:59 Heparin Sodium (Porcine) (Heparin 5000 units/ml) 5,000 units EVERY 12 HOURS SUBQ 03/07/17 21:00 04/05/17 20:59 03/07/17 20:53 Insulin Aspart (NovoLOG) BEFORE MEALS AND HS SUBQ 03/07/17 16:30 04/05/17 20:59 03/07/17 20:51 Insulin Detemir (Levemir) 8 units DAILY SUBQ 03/08/17 09:00 04/06/17 08:59 Lisinopril (Prinivil) 20 mg DAILY ORAL 03/08/17 09:00 04/06/17 08:59 Metronidazole 100 ml @ 100 mls/hr Q8HR IVPB 03/07/17 14:00 03/14/17 13:59 03/08/17 05:04 Nitroglycerin (Ntg) 0.4 mg Q5M X 3 DOSES PRN SL Prn Chest Pain 03/07/17 13:30 04/05/17 17:59 Ondansetron HCl (Zofran) 4 mg Q6H PRN IVP Nausea & Vomiting 03/07/17 18:00 04/05/17 17:59 Pantoprazole (Protonix) 40 mg DAILY ORAL 03/08/17 09:00 04/06/17 10:59 Piperacillin/ Tazobactam/ Dextrose 50 ml @ 12.5 mls/hr EVERY 8 HOURS IVPB 03/07/17 14:00 03/12/17 13:59 03/08/17 06:36 Polyethylene Glycol (Miralax) 17 gm BEDTIME ORAL 03/08/17 21:00 04/07/17 20:59 Polyethylene Glycol (Miralax) 17 gm HSPRN PRN ORAL Constipation 03/07/17 18:00 04/05/17 17:59 Sodium Chloride 1,000 ml @ 75 mls/hr [id number] IV 03/07/17 13:30 04/06/17 08:24 03/07/17 15:36 Tamsulosin HCl (Flomax) 0.4 mg DAILY ORAL 03/08/17 09:00 04/06/17 08:59 Temazepam (Restoril) 15 mg HSPRN PRN ORAL Insomnia 03/07/17 18:00 03/13/17 17:59 Item Value Date Time Bedside Blood Glucose 89 mg/dl 03/08/17 0630 Bedside Blood Glucose 141 mg/dl H 03/07/17 2100 Bedside Blood Glucose 132 mg/dl H 03/07/17 1702 Bedside Blood Glucose 71 mg/dl 03/07/17 1122 Bedside Blood Glucose 91 mg/dl 03/07/17 0900 Bedside Blood Glucose 91 mg/dl 03/07/17 0630 GERDA PALMER Mar 08, 2017 07:01
[2017-03-08 08:00] VITALS: BP 137/76
[2017-03-08 08:26] LABS: BASOPHILS % (AUTO) 1.5 % (0.0-2.0); EOSINOPHILS % (AUTO) 1.3 % (0.0-3.0); MEAN CORPUSCULAR HEMOGLOBIN 29.8 PG (27.0-31.0); MEAN CORPUSCULAR HGB CONC 31.9 G/DL (32.0-36.0); MEAN CORPUSCULAR VOLUME 94 FL (80-99); MEAN PLATELET VOLUME 7.5 FL (6.5-10.1); MONOCYTES % (AUTO) 10.7 % (1.0-10.0); NEUTROPHILS % (AUTO) 59.5 % (45.0-75.0); PLATELET COUNT 229 K/UL (150-450); RED BLOOD COUNT 4.75 M/UL (4.70-6.10); RED CELL DISTRIBUTION WIDTH 12.9 % (11.6-14.8); WHITE BLOOD COUNT 7.6 K/UL (4.8-10.8)
[2017-03-08] MEDS: Heparin 5000 units/ml inj SUBQ SCH ×2 (08:31→21:09)
[2017-03-08] MEDS: Lisinopril 20mg tab ORAL SCH (08:32)
[2017-03-08] MEDS: Docusate 100mg cap ORAL SCH ×2 (08:33→17:54)
[2017-03-08] MEDS: Tamsulosin 0.4mg cap ORAL SCH (08:33)
[2017-03-08 08:35] LABS: AMYLASE 52 U/L (25-115); LIPASE 190 U/L (73-393)
--- NOTE | 2017-03-08 08:39 | General Progress Note ---
Assessment/Plan Problem List: (1) UTI (urinary tract infection) ICD Codes: N39.0 - Urinary tract infection, site not specified SNOMED: 73471879 (2) Fever ICD Codes: R50.9 - Fever, unspecified SNOMED: 239145427 (3) Rheumatoid arthritis ICD Codes: M06.9 - Rheumatoid arthritis, unspecified SNOMED: 87556948 (4) Diabetes mellitus ICD Codes: E11.9 - Type 2 diabetes mellitus without complications SNOMED: 11034228 (5) Hypertension ICD Codes: I10 - Essential (primary) hypertension SNOMED: 56830223 (6) Intractable nausea and vomiting ICD Codes: R11.2 - Nausea with vomiting, unspecified SNOMED: 100884478, 241580875 Status: stable, progressing, tolerating diet Assessment/Plan ot pt diet abx gi f/u cbc bmp am Subjective Constitutional: Reports: weakness Allergies: Coded Allergies: No Known Allergies (Unverified , 11/23/15) All Systems: reviewed and negative except above Subjective calm in bed Objective Last 24 Hour Vital Signs Date Time Temp Pulse Resp B/P (MAP) Pulse Ox O2 Delivery O2 Flow Rate FiO2 03/08/17 08:33 94 137/76 03/08/17 08:32 137/76 03/08/17 08:00 97.7 94 18 137/76 99 Room Air 03/08/17 04:00 97.9 90 20 153/76 98 Room Air 03/08/17 00:00 97.8 89 21 119/61 100 Room Air 03/07/17 20:00 98.2 92 21 132/67 99 Room Air 03/07/17 15:30 98.1 97 20 123/71 95 Room Air 03/07/17 12:00 97.7 94 18 131/70 99 Room Air 03/07/17 09:53 149/83 03/07/17 09:53 86 149/83 Laboratory Tests 03/08/17 07:21: White Blood Count 7.6, Red Blood Count 4.75, Hemoglobin 14.2, Hematocrit 44.5, Mean Corpuscular Volume 94, Mean Corpuscular Hemoglobin 29.8, Mean Corpuscular Hemoglobin Concent 31.9L, Red Cell Distribution Width 12.9, Platelet Count 229, Mean Platelet Volume 7.5, Neutrophils (%) (Auto) 59.5, Lymphocytes (%) (Auto) 27.0, Monocytes (%) (Auto) 10.7H, Eosinophils (%) (Auto) 1.3, Basophils (%) ( Auto) 1.5, Sodium Level [Pending], Potassium Level [Pending], Chloride Level [ Pending], Carbon Dioxide Level [Pending], Blood Urea Nitrogen [Pending], Creatinine [Pending], Estimat Glomerular Filtration Rate [Pending], Glucose Level [Pending], Calcium Level [Pending], Total Bilirubin [Pending], Aspartate Amino Transf (AST/SGOT) [Pending], Alanine Aminotransferase (ALT/SGPT) [Pending] , Alkaline Phosphatase [Pending], Total Protein [Pending], Albumin [Pending], Globulin [Pending], Amylase Level 52, Lipase 190 Height (Feet): 5 Height (Inches): 8.00 Weight (Pounds): 165 General Appearance: alert EENT: normal ENT inspection Neck: normal alignment Cardiovascular: normal peripheral pulses, normal rate, regular rhythm Respiratory/Chest: chest wall non-tender, lungs clear, normal breath sounds Abdomen: normal bowel sounds, non tender, soft Extremities: normal inspection Edema: no edema noted Arm (L), no edema noted Arm (R), no edema noted Leg (L), no edema noted Leg (R), no edema noted Pedal (L), no edema noted Pedal (R), no edema noted Generalized Neurologic: responsive, motor weakness Skin: normal pigmentation, warm/dry PARAM NUÑEZ Mar 08, 2017 08:39
[2017-03-08 08:41] LABS: ALANINE AMINOTRANSFERASE 15 U/L (12-78); ALBUMIN/GLOBULIN RATIO 0.6 (1.0-2.7); ANION GAP 10 mmol/L (5-15); ASPARTATE AMINO TRANSFERASE 15 U/L (15-37); CALCIUM 8.7 MG/DL (8.5-10.1); CARBON DIOXIDE 23 MMOL/L (21-32); CHLORIDE 104 MMOL/L (98-107); CREATININE 0.6 MG/DL (0.55-1.30); GLOMERULAR FILTRATION RATE > 60 mL/min (>60); POTASSIUM 3.4 MMOL/L (3.5-5.1); SODIUM 137 MMOL/L (136-145); TOTAL PROTEIN 6.2 G/DL (6.4-8.2)
[2017-03-08] MEDS ORDERED: Levemir Flexpen SUBQ SCH (09:00)
[2017-03-08 12:00] VITALS: BP 133/77
--- NOTE | 2017-03-08 15:01 | Infectious Diseases Prog Note ---
Assessment/Plan Assessment/Plan A; Pyuria/UTI RA DM type 2 Nausea & Vomiting resolved P: Continue Zosyn discontinue Flagyl will f/u UC Subjective ROS Limited/Unobtainable: No Constitutional: Reports: no symptoms Gastrointestinal/Abdominal: Reports: no symptoms, other - started on PO diet Genitourinary: Reports: no symptoms Allergies: Coded Allergies: No Known Allergies (Unverified , 11/23/15) Objective Vital Signs Last 24 Hour Vital Signs Date Time Temp Pulse Resp B/P (MAP) Pulse Ox O2 Delivery O2 Flow Rate FiO2 03/08/17 12:00 98.0 89 18 133/77 98 Room Air 03/08/17 08:33 94 137/76 03/08/17 08:32 137/76 03/08/17 08:00 97.7 94 18 137/76 99 Room Air 03/08/17 04:00 97.9 90 20 153/76 98 Room Air 03/08/17 00:00 97.8 89 21 119/61 100 Room Air 03/07/17 20:00 98.2 92 21 132/67 99 Room Air 03/07/17 15:30 98.1 97 20 123/71 95 Room Air Height (Feet): 5 Height (Inches): 8.00 Weight (Pounds): 165 General Appearance: no acute distress Respiratory/Chest: lungs clear Cardiovascular: normal rate Abdomen: soft, non tender Extremities: no edema Neurologic/Psychiatric: alert, oriented x 3, responsive Microbiology Date/Time Source Procedure Growth Status 03/06/17 17:00 Urine,Clean Catch Urine Culture - Preliminary Resulted Laboratory Tests Test 03/08/17 07:21 White Blood Count 7.6 K/UL (4.8-10.8) Red Blood Count 4.75 M/UL (4.70-6.10) Hemoglobin 14.2 G/DL (14.2-18.0) Hematocrit 44.5 % (42.0-52.0) Mean Corpuscular Volume 94 FL (80-99) Mean Corpuscular Hemoglobin 29.8 PG (27.0-31.0) Mean Corpuscular Hemoglobin Concent 31.9 G/DL (32.0-36.0) L Red Cell Distribution Width 12.9 % (11.6-14.8) Platelet Count 229 K/UL (150-450) Mean Platelet Volume 7.5 FL (6.5-10.1) Neutrophils (%) (Auto) 59.5 % (45.0-75.0) Lymphocytes (%) (Auto) 27.0 % (20.0-45.0) Monocytes (%) (Auto) 10.7 % (1.0-10.0) H Eosinophils (%) (Auto) 1.3 % (0.0-3.0) Basophils (%) (Auto) 1.5 % (0.0-2.0) Sodium Level 137 MMOL/L (136-145) Potassium Level 3.4 MMOL/L (3.5-5.1) L Chloride Level 104 MMOL/L (98-107) Carbon Dioxide Level 23 MMOL/L (21-32) Anion Gap 10 mmol/L (5-15) Blood Urea Nitrogen 6 mg/dL (7-18) L Creatinine 0.6 MG/DL (0.55-1.30) Estimat Glomerular Filtration Rate > 60 mL/min (>60) Glucose Level 93 MG/DL (74-106) Calcium Level 8.7 MG/DL (8.5-10.1) Total Bilirubin 0.6 MG/DL (0.2-1.0) Aspartate Amino Transf (AST/SGOT) 15 U/L (15-37) Alanine Aminotransferase (ALT/SGPT) 15 U/L (12-78) Alkaline Phosphatase 59 U/L (46-116) Total Protein 6.2 G/DL (6.4-8.2) L Albumin 2.4 G/DL (3.4-5.0) L Globulin 3.8 g/dL Albumin/Globulin Ratio 0.6 (1.0-2.7) L Amylase Level 52 U/L (25-115) Lipase 190 U/L (73-393) Current Medications Medications (Trade) Dose Ordered Sig/Cyndi Route PRN Reason Start Time Stop Time Status Last Admin Dose Admin Acetaminophen (Tylenol) 650 mg Q4H PRN ORAL fever 03/07/17 14:00 04/05/17 17:59 Al Hydroxide/Mg Hydroxide (Mylanta II) 30 ml Q6H PRN ORAL dyspepsia 03/07/17 18:00 04/05/17 17:59 Amlodipine Besylate (Norvasc) 5 mg DAILY ORAL 03/08/17 09:00 04/06/17 08:59 03/08/17 08:33 Dextrose (Dextrose 50%) STAT PRN IV Hypoglycemia 03/08/17 08:15 04/06/17 08:14 Diphenhydramine HCl (Benadryl) 25 mg Q6H PRN ORAL Itching/Pruritis 03/07/17 18:00 04/05/17 17:59 Docusate Sodium (Colace) 100 mg TWICE A DAY ORAL 03/08/17 09:00 04/07/17 08:59 03/08/17 08:33 Heparin Sodium (Porcine) (Heparin 5000 units/ml) 5,000 units EVERY 12 HOURS SUBQ 03/07/17 21:00 04/05/17 20:59 03/08/17 08:31 Insulin Aspart (NovoLOG) BEFORE MEALS AND HS SUBQ 03/07/17 16:30 04/05/17 20:59 03/08/17 11:40 Insulin Detemir (Levemir) 8 units DAILY SUBQ 03/08/17 09:00 04/06/17 08:59 03/08/17 08:32 Lisinopril (Prinivil) 20 mg DAILY ORAL 03/08/17 09:00 04/06/17 08:59 03/08/17 08:32 Metronidazole 100 ml @ 100 mls/hr Q8HR IVPB 03/07/17 14:00 03/14/17 13:59 03/08/17 14:27 Nitroglycerin (Ntg) 0.4 mg Q5M X 3 DOSES PRN SL Prn Chest Pain 03/07/17 13:30 04/05/17 17:59 Ondansetron HCl (Zofran) 4 mg Q6H PRN IVP Nausea & Vomiting 03/07/17 18:00 04/05/17 17:59 Pantoprazole (Protonix) 40 mg DAILY ORAL 03/08/17 09:00 04/06/17 10:59 03/08/17 08:33 Piperacillin/ Tazobactam/ Dextrose 50 ml @ 12.5 mls/hr EVERY 8 HOURS IVPB 03/07/17 14:00 03/12/17 13:59 03/08/17 14:15 Polyethylene Glycol (Miralax) 17 gm BEDTIME ORAL 03/08/17 21:00 12/12/17 20:59 Polyethylene Glycol (Miralax) 17 gm HSPRN PRN ORAL Constipation 03/07/17 18:00 04/05/17 17:59 Sodium Chloride 1,000 ml @ 75 mls/hr [id number] IV 03/07/17 13:30 04/06/17 08:24 03/07/17 15:36 Tamsulosin HCl (Flomax) 0.4 mg DAILY ORAL 03/08/17 09:00 04/06/17 08:59 03/08/17 08:33 Temazepam (Restoril) 15 mg HSPRN PRN ORAL Insomnia 03/07/17 18:00 03/13/17 17:59 ROSY HIRSCH Mar 08, 2017 15:01
[2017-03-08] MEDS ORDERED: Tubing IV Secondary IV ONE (15:45)
[2017-03-08 16:00] VITALS: BP 124/61
[2017-03-08 20:00] VITALS: BP 126/66
[2017-03-08] MEDS ORDERED: Miralax 17gm pkt ORAL SCH (21:00)
--- NOTE | 2017-03-08 21:20 | Pulmonology Progress Note ---
Assessment/Plan Problems: (1) Intractable nausea and vomiting (2) Hypertension (3) Diabetes mellitus (4) Rheumatoid arthritis Assessment/Plan feeling better advance diet as tolerated keep IV fluids sliding scale med/surg all noted and reviewed Subjective ROS Limited/Unobtainable: No Interval Events: feeling better Allergies: Coded Allergies: No Known Allergies (Unverified , 11/23/15) Objective Last 24 Hour Vital Signs Date Time Temp Pulse Resp B/P (MAP) Pulse Ox O2 Delivery O2 Flow Rate FiO2 03/08/17 20:00 98.4 96 21 126/66 100 Room Air 03/08/17 16:00 98.2 100 19 124/61 98 Room Air 03/08/17 12:00 98.0 89 18 133/77 98 Room Air 03/08/17 08:33 94 137/76 03/08/17 08:32 137/76 03/08/17 08:00 97.7 94 18 137/76 99 Room Air 03/08/17 04:00 97.9 90 20 153/76 98 Room Air 03/08/17 00:00 97.8 89 21 119/61 100 Room Air Intake and Output 03/08/17 03/09/17 19:00 07:00 Intake Total 1290.0 ml Balance 1290.0 ml Intake Oral 540 ml IV Total 750.0 ml # Voids 6 Objective General Appearance: WD/WN HEENT: normocephalic, atraumatic, PERRL Respiratory/Chest: chest wall non-tender, lungs clear Cardiovascular: no JVD Extremities: no cyanosis Skin: no rash Microbiology Date/Time Source Procedure Growth Status 03/06/17 17:00 Urine,Clean Catch Urine Culture - Preliminary Resulted Laboratory Tests 03/08/17 07:21: White Blood Count 7.6, Red Blood Count 4.75, Hemoglobin 14.2, Hematocrit 44.5, Mean Corpuscular Volume 94, Mean Corpuscular Hemoglobin 29.8, Mean Corpuscular Hemoglobin Concent 31.9L, Red Cell Distribution Width 12.9, Platelet Count 229, Mean Platelet Volume 7.5, Neutrophils (%) (Auto) 59.5, Lymphocytes (%) (Auto) 27.0, Monocytes (%) (Auto) 10.7H, Eosinophils (%) (Auto) 1.3, Basophils (%) ( Auto) 1.5, Sodium Level 137, Potassium Level 3.4L, Chloride Level 104, Carbon Dioxide Level 23, Anion Gap 10, Blood Urea Nitrogen 6L, Creatinine 0.6, Estimat Glomerular Filtration Rate > 60, Glucose Level 93, Calcium Level 8.7, Total Bilirubin 0.6, Aspartate Amino Transf (AST/SGOT) 15, Alanine Aminotransferase ( ALT/SGPT) 15, Alkaline Phosphatase 59, Total Protein 6.2L, Albumin 2.4L, Globulin 3.8, Albumin/Globulin Ratio 0.6L, Amylase Level 52, Lipase 190 Current Medications Medications (Trade) Dose Ordered Sig/Cyndi Route PRN Reason Start Time Stop Time Status Last Admin Dose Admin Acetaminophen (Tylenol) 650 mg Q4H PRN ORAL fever 03/07/17 14:00 04/05/17 17:59 Al Hydroxide/Mg Hydroxide (Mylanta II) 30 ml Q6H PRN ORAL dyspepsia 03/07/17 18:00 04/05/17 17:59 Amlodipine Besylate (Norvasc) 5 mg DAILY ORAL 03/08/17 09:00 04/06/17 08:59 03/08/17 08:33 Dextrose (Dextrose 50%) STAT PRN IV Hypoglycemia 03/08/17 08:15 04/06/17 08:14 Diphenhydramine HCl (Benadryl) 25 mg Q6H PRN ORAL Itching/Pruritis 03/07/17 18:00 04/05/17 17:59 Docusate Sodium (Colace) 100 mg TWICE A DAY ORAL 03/08/17 09:00 04/07/17 08:59 03/08/17 17:54 Heparin Sodium (Porcine) (Heparin 5000 units/ml) 5,000 units EVERY 12 HOURS SUBQ 03/07/17 21:00 04/05/17 20:59 03/08/17 21:09 Insulin Aspart (NovoLOG) BEFORE MEALS AND HS SUBQ 03/07/17 16:30 04/05/17 20:59 03/08/17 16:31 Insulin Detemir (Levemir) 8 units DAILY SUBQ 03/08/17 09:00 04/06/17 08:59 03/08/17 08:32 Lisinopril (Prinivil) 20 mg DAILY ORAL 03/08/17 09:00 04/06/17 08:59 03/08/17 08:32 Nitroglycerin (Ntg) 0.4 mg Q5M X 3 DOSES PRN SL Prn Chest Pain 03/07/17 13:30 04/05/17 17:59 Ondansetron HCl (Zofran) 4 mg Q6H PRN IVP Nausea & Vomiting 03/07/17 18:00 04/05/17 17:59 Pantoprazole (Protonix) 40 mg DAILY ORAL 03/08/17 09:00 04/06/17 10:59 03/08/17 08:33 Piperacillin/ Tazobactam/ Dextrose 50 ml @ 12.5 mls/hr EVERY 8 HOURS IVPB 03/07/17 14:00 03/12/17 13:59 03/08/17 14:15 Polyethylene Glycol (Miralax) 17 gm BEDTIME ORAL 03/08/17 21:00 04/07/17 20:59 03/08/17 21:07 Polyethylene Glycol (Miralax) 17 gm HSPRN PRN ORAL Constipation 03/07/17 18:00 04/05/17 17:59 Sodium Chloride 1,000 ml @ 75 mls/hr [id number] IV 03/07/17 13:30 04/06/17 08:24 03/08/17 16:20 Tamsulosin HCl (Flomax) 0.4 mg DAILY ORAL 03/08/17 09:00 04/06/17 08:59 03/08/17 08:33 Temazepam (Restoril) 15 mg HSPRN PRN ORAL Insomnia 03/07/17 18:00 03/13/17 17:59 JAKOB TAY Mar 08, 2017 21:20
[2017-03-09] VITALS: BP 127/71
[2017-03-09 04:40] VITALS: BP 141/79
[2017-03-09] MEDS: Zosyn 3.375gm/50ml Premix 50 ML IVPB SCH ×2 (06:05→14:00)
[2017-03-09] MEDS: NovoLOG Insulin Flexpen SUBQ SCH ×2 (06:08→11:29)
[2017-03-09 07:06] LABS: BASOPHILS % (AUTO) 1.8 % (0.0-2.0); EOSINOPHILS % (AUTO) 1.5 % (0.0-3.0); MEAN CORPUSCULAR HEMOGLOBIN 29.7 PG (27.0-31.0); MEAN CORPUSCULAR VOLUME 93 FL (80-99); MEAN PLATELET VOLUME 7.5 FL (6.5-10.1); MONOCYTES % (AUTO) 12.6 % (1.0-10.0); NEUTROPHILS % (AUTO) 55.1 % (45.0-75.0); PLATELET COUNT 218 K/UL (150-450); RED BLOOD COUNT 4.68 M/UL (4.70-6.10); RED CELL DISTRIBUTION WIDTH 12.8 % (11.6-14.8); WHITE BLOOD COUNT 7.2 K/UL (4.8-10.8)
[2017-03-09 07:46] LABS: ANION GAP 10 mmol/L (5-15); CALCIUM 8.7 MG/DL (8.5-10.1); CARBON DIOXIDE 22 MMOL/L (21-32); CHLORIDE 104 MMOL/L (98-107); CREATININE 0.6 MG/DL (0.55-1.30); GLOMERULAR FILTRATION RATE > 60 mL/min (>60); POTASSIUM 3.5 MMOL/L (3.5-5.1); SODIUM 136 MMOL/L (136-145)
[2017-03-09 07:48] LABS: AMYLASE 47 U/L (25-115); LIPASE 178 U/L (73-393)
--- NOTE | 2017-03-09 07:54 | General Progress Note ---
Assessment/Plan Problem List: (1) Diabetes mellitus ICD Codes: E11.9 - Type 2 diabetes mellitus without complications SNOMED: 43233893 (2) Hypertension ICD Codes: I10 - Essential (primary) hypertension SNOMED: 53359946 Assessment/Plan reduce Levemir 8 to 6 units daily continue SSI Subjective Allergies: Coded Allergies: No Known Allergies (Unverified , 11/23/15) All Systems: reviewed and negative except above Subjective events noted Objective Last 24 Hour Vital Signs Date Time Temp Pulse Resp B/P (MAP) Pulse Ox O2 Delivery O2 Flow Rate FiO2 03/09/17 04:40 97.6 90 21 141/79 99 Room Air 03/09/17 00:00 98.2 94 21 127/71 100 Room Air 03/08/17 20:00 98.4 96 21 126/66 100 Room Air 03/08/17 16:00 98.2 100 19 124/61 98 Room Air 03/08/17 12:00 98.0 89 18 133/77 98 Room Air 03/08/17 08:33 94 137/76 03/08/17 08:32 137/76 03/08/17 08:00 97.7 94 18 137/76 99 Room Air Laboratory Tests 03/09/17 05:00: White Blood Count 7.2, Red Blood Count 4.68L, Hemoglobin 13.9L, Hematocrit 43.5 , Mean Corpuscular Volume 93, Mean Corpuscular Hemoglobin 29.7, Mean Corpuscular Hemoglobin Concent 32.0, Red Cell Distribution Width 12.8, Platelet Count 218, Mean Platelet Volume 7.5, Neutrophils (%) (Auto) 55.1, Lymphocytes (% ) (Auto) 29.0, Monocytes (%) (Auto) 12.6H, Eosinophils (%) (Auto) 1.5, Basophils (%) (Auto) 1.8, Sodium Level 136, Potassium Level 3.5, Chloride Level 104, Carbon Dioxide Level 22, Anion Gap 10, Blood Urea Nitrogen 4L, Creatinine 0.6, Estimat Glomerular Filtration Rate > 60, Glucose Level 85, Calcium Level 8.7, Amylase Level 47, Lipase 178 Height (Feet): 5 Height (Inches): 8.00 Weight (Pounds): 165 General Appearance: no apparent distress Neck: normal alignment Cardiovascular: normal rate Respiratory/Chest: lungs clear Abdomen: normal bowel sounds Objective Current Medications Medications (Trade) Dose Ordered Sig/Cyndi Route PRN Reason Start Time Stop Time Status Last Admin Dose Admin Acetaminophen (Tylenol) 650 mg Q4H PRN ORAL fever 03/07/17 14:00 04/05/17 17:59 Al Hydroxide/Mg Hydroxide (Mylanta II) 30 ml Q6H PRN ORAL dyspepsia 03/07/17 18:00 04/05/17 17:59 Amlodipine Besylate (Norvasc) 5 mg DAILY ORAL 03/08/17 09:00 04/06/17 08:59 03/08/17 08:33 Dextrose (Dextrose 50%) STAT PRN IV Hypoglycemia 03/08/17 08:15 04/06/17 08:14 Diphenhydramine HCl (Benadryl) 25 mg Q6H PRN ORAL Itching/Pruritis 03/07/17 18:00 04/05/17 17:59 Docusate Sodium (Colace) 100 mg TWICE A DAY ORAL 03/08/17 09:00 04/07/17 08:59 03/08/17 17:54 Heparin Sodium (Porcine) (Heparin 5000 units/ml) 5,000 units EVERY 12 HOURS SUBQ 03/07/17 21:00 04/05/17 20:59 03/08/17 21:09 Insulin Aspart (NovoLOG) BEFORE MEALS AND HS SUBQ 03/07/17 16:30 04/05/17 20:59 03/08/17 16:31 Insulin Detemir (Levemir) 8 units DAILY SUBQ 03/08/17 09:00 04/06/17 08:59 03/08/17 08:32 Lisinopril (Prinivil) 20 mg DAILY ORAL 03/08/17 09:00 04/06/17 08:59 03/08/17 08:32 Nitroglycerin (Ntg) 0.4 mg Q5M X 3 DOSES PRN SL Prn Chest Pain 03/07/17 13:30 04/05/17 17:59 Ondansetron HCl (Zofran) 4 mg Q6H PRN IVP Nausea & Vomiting 03/07/17 18:00 04/05/17 17:59 Pantoprazole (Protonix) 40 mg DAILY ORAL 03/08/17 09:00 04/06/17 10:59 03/08/17 08:33 Piperacillin/ Tazobactam/ Dextrose 50 ml @ 12.5 mls/hr EVERY 8 HOURS IVPB 03/07/17 14:00 03/12/17 13:59 03/09/17 06:05 Polyethylene Glycol (Miralax) 17 gm BEDTIME ORAL 03/08/17 21:00 04/07/17 20:59 03/08/17 21:07 Polyethylene Glycol (Miralax) 17 gm HSPRN PRN ORAL Constipation 03/07/17 18:00 04/05/17 17:59 Sodium Chloride 1,000 ml @ 75 mls/hr [id number] IV 03/07/17 13:30 04/06/17 08:24 03/08/17 22:02 Tamsulosin HCl (Flomax) 0.4 mg DAILY ORAL 03/08/17 09:00 04/06/17 08:59 03/08/17 08:33 Temazepam (Restoril) 15 mg HSPRN PRN ORAL Insomnia 03/07/17 18:00 03/13/17 17:59 Item Value Date Time Bedside Blood Glucose 78 mg/dl 03/09/17 0608 Bedside Blood Glucose 87 mg/dl 03/08/17 2055 Bedside Blood Glucose 139 mg/dl H 03/08/17 1631 Bedside Blood Glucose 114 mg/dl 03/08/17 1140 Bedside Blood Glucose 93 mg/dl 03/08/17 0832 Bedside Blood Glucose 89 mg/dl 03/08/17 0630 GERDA PALMER Mar 09, 2017 07:54
[2017-03-09 08:00] VITALS: BP 139/78
[2017-03-09] MEDS: Tamsulosin 0.4mg cap ORAL SCH (08:22)
[2017-03-09] MEDS: Docusate 100mg cap ORAL SCH (08:22)
[2017-03-09] MEDS: Lisinopril 20mg tab ORAL SCH (08:22)
[2017-03-09] MEDS: Heparin 5000 units/ml inj SUBQ SCH (08:24)
--- NOTE | 2017-03-09 08:47 | Diagnostic Imaging Report ---
Indication: Abdominal pain Technique: Mayorga-scale and duplex images of the upper abdomen were obtained Comparison: No comparison sonograms. Reference made to CT of 03/06/2017 Findings: Exam is somewhat limited due to patient body habitus. Gallbladder is unremarkable, without stones, wall thickening, nor pericholecystic fluid. Sonographic Moreno's sign is negative. Common bile duct measures 5 mm in diameter. No intrahepatic biliary ductal dilatation. Liver demonstrates normal echogenicity, no focal abnormality. Portal vein and hepatic veins are patent. Pancreas is unremarkable. Spleen is unremarkable. Left kidney measures 12.1 cm in length. Right kidney measures 12.5 cm length. Both kidneys demonstrate normal echogenicity. There is no hydronephrosis. The right kidney demonstrates a calcification within the renal sinus. This correlates with the calyceal calcification described on recent CT scan. . Non-aneurysmal abdominal aorta . Impression: Negative for gallstones or dilated ducts Nonobstructive right renal calyceal calculus, also reported on recent CT scan
[2017-03-09] MEDS ORDERED: Levemir Flexpen SUBQ SCH (09:30)
[2017-03-09 12:00] VITALS: BP 141/80
--- NOTE | 2017-03-09 12:17 | GI Progress Note ---
Assessment/Plan Problems: (1) Intractable nausea and vomiting ICD Codes: R11.2 - Nausea with vomiting, unspecified SNOMED: 928609399, 079822684 (2) Diabetes mellitus ICD Codes: E11.9 - Type 2 diabetes mellitus without complications SNOMED: 95092413 (3) Dehydration ICD Codes: E86.0 - Dehydration SNOMED: 65566392 Status: stable Status Narrative Discussed with Dr. Lowery. Assessment/Plan Abdominal U/S reviewed >> unremarkable CT AP reviewed >> possible pancreatitis lipase WNL okay for DC per GI standpoint advance diet fu repeat labs colace and miralax outpatient colonoscopy The patient was seen and examined at bedside and all new and available data was reviewed in the patients chart. I agree with the above findings, impression and plan. (Patient seen earlier today. Signature stamp does not reflect patient encounter time.). - Jourdan Lowery MD Subjective Subjective abdominal pain resolved Objective Last 24 Hour Vital Signs Date Time Temp Pulse Resp B/P (MAP) Pulse Ox O2 Delivery O2 Flow Rate FiO2 03/09/17 08:23 98 139/78 03/09/17 08:22 139/78 03/09/17 08:00 98.6 98 18 139/78 96 Room Air 03/09/17 04:40 97.6 90 21 141/79 99 Room Air 03/09/17 00:00 98.2 94 21 127/71 100 Room Air 03/08/17 20:00 98.4 96 21 126/66 100 Room Air 03/08/17 16:00 98.2 100 19 124/61 98 Room Air Intake and Output 03/09/17 03/10/17 18:59 06:59 Intake Total 125.0 ml Balance 125.0 ml IV Total 125.0 ml Laboratory Tests Test 03/09/17 05:00 White Blood Count 7.2 K/UL (4.8-10.8) Red Blood Count 4.68 M/UL (4.70-6.10) L Hemoglobin 13.9 G/DL (14.2-18.0) L Hematocrit 43.5 % (42.0-52.0) Mean Corpuscular Volume 93 FL (80-99) Mean Corpuscular Hemoglobin 29.7 PG (27.0-31.0) Mean Corpuscular Hemoglobin Concent 32.0 G/DL (32.0-36.0) Red Cell Distribution Width 12.8 % (11.6-14.8) Platelet Count 218 K/UL (150-450) Mean Platelet Volume 7.5 FL (6.5-10.1) Neutrophils (%) (Auto) 55.1 % (45.0-75.0) Lymphocytes (%) (Auto) 29.0 % (20.0-45.0) Monocytes (%) (Auto) 12.6 % (1.0-10.0) H Eosinophils (%) (Auto) 1.5 % (0.0-3.0) Basophils (%) (Auto) 1.8 % (0.0-2.0) Sodium Level 136 MMOL/L (136-145) Potassium Level 3.5 MMOL/L (3.5-5.1) Chloride Level 104 MMOL/L (98-107) Carbon Dioxide Level 22 MMOL/L (21-32) Anion Gap 10 mmol/L (5-15) Blood Urea Nitrogen 4 mg/dL (7-18) L Creatinine 0.6 MG/DL (0.55-1.30) Estimat Glomerular Filtration Rate > 60 mL/min (>60) Glucose Level 85 MG/DL (74-106) Calcium Level 8.7 MG/DL (8.5-10.1) Amylase Level 47 U/L (25-115) Lipase 178 U/L (73-393) Height (Feet): 5 Height (Inches): 8.00 Weight (Pounds): 165 General Appearance: WD/WN, no apparent distress, alert Cardiovascular: normal rate Respiratory/Chest: normal breath sounds, no respiratory distress Abdominal Exam: normal bowel sounds, non tender, soft Extremities: normal range of motion, non-tender Brittani Trevizo N.PJoshua Mar 09, 2017 12:17 SYLVIE LOWERY Mar 10, 2017 14:18
--- NOTE | 2017-03-09 12:55 | General Progress Note ---
Assessment/Plan Problem List: (1) UTI (urinary tract infection) ICD Codes: N39.0 - Urinary tract infection, site not specified SNOMED: 96188187 (2) Fever ICD Codes: R50.9 - Fever, unspecified SNOMED: 192183781 (3) Rheumatoid arthritis ICD Codes: M06.9 - Rheumatoid arthritis, unspecified SNOMED: 62994058 (4) Diabetes mellitus ICD Codes: E11.9 - Type 2 diabetes mellitus without complications SNOMED: 85098057 (5) Hypertension ICD Codes: I10 - Essential (primary) hypertension SNOMED: 18850095 (6) Intractable nausea and vomiting ICD Codes: R11.2 - Nausea with vomiting, unspecified SNOMED: 961558761, 503986086 Status: stable, progressing, tolerating diet Assessment/Plan ot pt diet abx gi f/u dc w hh Subjective Constitutional: Reports: weakness Allergies: Coded Allergies: No Known Allergies (Unverified , 11/23/15) All Systems: reviewed and negative except above Subjective calm in bed Objective Last 24 Hour Vital Signs Date Time Temp Pulse Resp B/P (MAP) Pulse Ox O2 Delivery O2 Flow Rate FiO2 03/09/17 12:00 97.7 96 18 141/80 98 Room Air 03/09/17 08:23 98 139/78 03/09/17 08:22 139/78 03/09/17 08:00 98.6 98 18 139/78 96 Room Air 03/09/17 04:40 97.6 90 21 141/79 99 Room Air 03/09/17 00:00 98.2 94 21 127/71 100 Room Air 03/08/17 20:00 98.4 96 21 126/66 100 Room Air 03/08/17 16:00 98.2 100 19 124/61 98 Room Air Intake and Output 03/09/17 03/10/17 19:00 07:00 Intake Total 112.5 ml Balance 112.5 ml IV Total 112.5 ml Laboratory Tests 03/09/17 05:00: White Blood Count 7.2, Red Blood Count 4.68L, Hemoglobin 13.9L, Hematocrit 43.5 , Mean Corpuscular Volume 93, Mean Corpuscular Hemoglobin 29.7, Mean Corpuscular Hemoglobin Concent 32.0, Red Cell Distribution Width 12.8, Platelet Count 218, Mean Platelet Volume 7.5, Neutrophils (%) (Auto) 55.1, Lymphocytes (% ) (Auto) 29.0, Monocytes (%) (Auto) 12.6H, Eosinophils (%) (Auto) 1.5, Basophils (%) (Auto) 1.8, Sodium Level 136, Potassium Level 3.5, Chloride Level 104, Carbon Dioxide Level 22, Anion Gap 10, Blood Urea Nitrogen 4L, Creatinine 0.6, Estimat Glomerular Filtration Rate > 60, Glucose Level 85, Calcium Level 8.7, Amylase Level 47, Lipase 178 Height (Feet): 5 Height (Inches): 8.00 Weight (Pounds): 165 General Appearance: alert EENT: normal ENT inspection Neck: normal alignment Cardiovascular: normal peripheral pulses, normal rate, regular rhythm Respiratory/Chest: chest wall non-tender, lungs clear, normal breath sounds Abdomen: normal bowel sounds, non tender, soft Extremities: normal inspection Edema: no edema noted Arm (L), no edema noted Arm (R), no edema noted Leg (L), no edema noted Leg (R), no edema noted Pedal (L), no edema noted Pedal (R), no edema noted Generalized Neurologic: responsive, motor weakness Skin: normal pigmentation, warm/dry PARAM NUÑEZ Mar 09, 2017 12:55
--- NOTE | 2017-03-09 12:55 | Infectious Diseases Prog Note ---
Assessment/Plan Assessment/Plan A; Pyuria/UTI RA DM type 2 Nausea & Vomiting resolved mild pancreatitis P: Continue Zosyn will f/u UC Subjective ROS Limited/Unobtainable: No Constitutional: Reports: no symptoms Respiratory: Reports: no symptoms Breasts: Reports: no symptoms Gastrointestinal/Abdominal: Reports: no symptoms Genitourinary: Reports: no symptoms Allergies: Coded Allergies: No Known Allergies (Unverified , 11/23/15) Objective Vital Signs Last 24 Hour Vital Signs Date Time Temp Pulse Resp B/P (MAP) Pulse Ox O2 Delivery O2 Flow Rate FiO2 03/09/17 12:00 97.7 96 18 141/80 98 Room Air 03/09/17 08:23 98 139/78 03/09/17 08:22 139/78 03/09/17 08:00 98.6 98 18 139/78 96 Room Air 03/09/17 04:40 97.6 90 21 141/79 99 Room Air 03/09/17 00:00 98.2 94 21 127/71 100 Room Air 03/08/17 20:00 98.4 96 21 126/66 100 Room Air 03/08/17 16:00 98.2 100 19 124/61 98 Room Air Height (Feet): 5 Height (Inches): 8.00 Weight (Pounds): 165 General Appearance: no acute distress HEENT: mucous membranes moist Cardiovascular: normal rate Abdomen: soft, non tender Extremities: no edema Neurologic/Psychiatric: alert, oriented x 3, responsive Microbiology Date/Time Source Procedure Growth Status 03/06/17 17:00 Urine,Clean Catch Urine Culture - Preliminary Gram Positive Cocci Strep Agalactiae Group B Resulted Laboratory Tests Test 03/09/17 05:00 White Blood Count 7.2 K/UL (4.8-10.8) Red Blood Count 4.68 M/UL (4.70-6.10) L Hemoglobin 13.9 G/DL (14.2-18.0) L Hematocrit 43.5 % (42.0-52.0) Mean Corpuscular Volume 93 FL (80-99) Mean Corpuscular Hemoglobin 29.7 PG (27.0-31.0) Mean Corpuscular Hemoglobin Concent 32.0 G/DL (32.0-36.0) Red Cell Distribution Width 12.8 % (11.6-14.8) Platelet Count 218 K/UL (150-450) Mean Platelet Volume 7.5 FL (6.5-10.1) Neutrophils (%) (Auto) 55.1 % (45.0-75.0) Lymphocytes (%) (Auto) 29.0 % (20.0-45.0) Monocytes (%) (Auto) 12.6 % (1.0-10.0) H Eosinophils (%) (Auto) 1.5 % (0.0-3.0) Basophils (%) (Auto) 1.8 % (0.0-2.0) Sodium Level 136 MMOL/L (136-145) Potassium Level 3.5 MMOL/L (3.5-5.1) Chloride Level 104 MMOL/L (98-107) Carbon Dioxide Level 22 MMOL/L (21-32) Anion Gap 10 mmol/L (5-15) Blood Urea Nitrogen 4 mg/dL (7-18) L Creatinine 0.6 MG/DL (0.55-1.30) Estimat Glomerular Filtration Rate > 60 mL/min (>60) Glucose Level 85 MG/DL (74-106) Calcium Level 8.7 MG/DL (8.5-10.1) Amylase Level 47 U/L (25-115) Lipase 178 U/L (73-393) Current Medications Medications (Trade) Dose Ordered Sig/Cyndi Route PRN Reason Start Time Stop Time Status Last Admin Dose Admin Acetaminophen (Tylenol) 650 mg Q4H PRN ORAL fever 03/07/17 14:00 04/05/17 17:59 Al Hydroxide/Mg Hydroxide (Mylanta II) 30 ml Q6H PRN ORAL dyspepsia 03/07/17 18:00 04/05/17 17:59 Amlodipine Besylate (Norvasc) 5 mg DAILY ORAL 03/08/17 09:00 04/06/17 08:59 03/09/17 08:23 Dextrose (Dextrose 50%) STAT PRN IV Hypoglycemia 03/08/17 08:15 04/06/17 08:14 Diphenhydramine HCl (Benadryl) 25 mg Q6H PRN ORAL Itching/Pruritis 03/07/17 18:00 04/05/17 17:59 Docusate Sodium (Colace) 100 mg TWICE A DAY ORAL 03/08/17 09:00 04/07/17 08:59 03/09/17 08:22 Heparin Sodium (Porcine) (Heparin 5000 units/ml) 5,000 units EVERY 12 HOURS SUBQ 03/07/17 21:00 04/05/17 20:59 03/09/17 08:24 Insulin Aspart (NovoLOG) BEFORE MEALS AND HS SUBQ 03/07/17 16:30 04/05/17 20:59 03/08/17 16:31 Insulin Detemir (Levemir) 6 units DAILY SUBQ 03/09/17 09:30 04/08/17 09:29 03/09/17 08:53 Lisinopril (Prinivil) 20 mg DAILY ORAL 03/08/17 09:00 04/06/17 08:59 03/09/17 08:22 Nitroglycerin (Ntg) 0.4 mg Q5M X 3 DOSES PRN SL Prn Chest Pain 03/07/17 13:30 04/05/17 17:59 Ondansetron HCl (Zofran) 4 mg Q6H PRN IVP Nausea & Vomiting 03/07/17 18:00 04/05/17 17:59 Pantoprazole (Protonix) 40 mg DAILY ORAL 03/08/17 09:00 04/06/17 10:59 03/09/17 08:22 Piperacillin Sod/ Tazobactam Sod 3.375 gm/Dextrose 55 ml @ 13.75 mls/ hr Q8HR IVPB 03/09/17 22:00 03/16/17 21:59 Piperacillin/ Tazobactam/ Dextrose 50 ml @ 12.5 mls/hr EVERY 8 HOURS IVPB 03/07/17 14:00 03/09/17 21:59 03/09/17 06:05 Polyethylene Glycol (Miralax) 17 gm BEDTIME ORAL 03/08/17 21:00 04/07/17 20:59 03/08/17 21:07 Polyethylene Glycol (Miralax) 17 gm HSPRN PRN ORAL Constipation 03/07/17 18:00 04/05/17 17:59 Sodium Chloride 1,000 ml @ 75 mls/hr [id number] IV 03/07/17 13:30 04/06/17 08:24 03/08/17 22:02 Tamsulosin HCl (Flomax) 0.4 mg DAILY ORAL 03/08/17 09:00 04/06/17 08:59 03/09/17 08:22 Temazepam (Restoril) 15 mg HSPRN PRN ORAL Insomnia 03/07/17 18:00 03/13/17 17:59 ROSY HIRSCH Mar 09, 2017 12:55
[2017-03-09] MEDS ORDERED: NOVOLOG100 UNIT/3 SUBQ (13:14)
[2017-03-09] MEDS ORDERED: COLACE100 MG ORAL (13:15)
[2017-03-09] MEDS ORDERED: AMOX TR-K CLV1 EAC1 ORAL (13:25)
--- NOTE | 2017-03-09 15:11 | Pulmonology Progress Note ---
Assessment/Plan Problems: (1) Intractable nausea and vomiting (2) Hypertension (3) Diabetes mellitus (4) Rheumatoid arthritis Assessment/Plan feeling better advance diet as tolerated keep IV fluids sliding scale med/surg all noted and reviewed dc planning in progress Subjective ROS Limited/Unobtainable: No Constitutional: Reports: no symptoms HEENT: Repors: no symptoms Allergies: Coded Allergies: No Known Allergies (Unverified , 11/23/15) Objective Last 24 Hour Vital Signs Date Time Temp Pulse Resp B/P (MAP) Pulse Ox O2 Delivery O2 Flow Rate FiO2 03/09/17 14:55 97.7 03/09/17 12:00 97.7 96 18 141/80 98 Room Air 03/09/17 08:23 98 139/78 03/09/17 08:22 139/78 03/09/17 08:00 98.6 98 18 139/78 96 Room Air 03/09/17 04:40 97.6 90 21 141/79 99 Room Air 03/09/17 00:00 98.2 94 21 127/71 100 Room Air 03/08/17 20:00 98.4 96 21 126/66 100 Room Air 03/08/17 16:00 98.2 100 19 124/61 98 Room Air Intake and Output 03/09/17 03/10/17 19:00 07:00 Intake Total 112.5 ml Balance 112.5 ml IV Total 112.5 ml Objective General Appearance: WD/WN HEENT: normocephalic, atraumatic, PERRL Respiratory/Chest: chest wall non-tender, lungs clear Cardiovascular: no JVD Extremities: no cyanosis Skin: no rash Microbiology Date/Time Source Procedure Growth Status 03/06/17 17:00 Urine,Clean Catch Urine Culture - Preliminary Gram Positive Cocci Strep Agalactiae Group B Resulted Laboratory Tests 03/09/17 05:00: White Blood Count 7.2, Red Blood Count 4.68L, Hemoglobin 13.9L, Hematocrit 43.5 , Mean Corpuscular Volume 93, Mean Corpuscular Hemoglobin 29.7, Mean Corpuscular Hemoglobin Concent 32.0, Red Cell Distribution Width 12.8, Platelet Count 218, Mean Platelet Volume 7.5, Neutrophils (%) (Auto) 55.1, Lymphocytes (% ) (Auto) 29.0, Monocytes (%) (Auto) 12.6H, Eosinophils (%) (Auto) 1.5, Basophils (%) (Auto) 1.8, Sodium Level 136, Potassium Level 3.5, Chloride Level 104, Carbon Dioxide Level 22, Anion Gap 10, Blood Urea Nitrogen 4L, Creatinine 0.6, Estimat Glomerular Filtration Rate > 60, Glucose Level 85, Calcium Level 8.7, Amylase Level 47, Lipase 178 Current Medications Medications (Trade) Dose Ordered Sig/Cyndi Route PRN Reason Start Time Stop Time Status Last Admin Dose Admin Acetaminophen (Tylenol) 650 mg Q4H PRN ORAL fever 03/07/17 14:00 04/05/17 17:59 Acetaminophen/ Hydrocodone Bitart ([place]ier 5/325) 1 tab ONCE ONCE ORAL 03/09/17 15:15 03/09/17 15:16 Al Hydroxide/Mg Hydroxide (Mylanta II) 30 ml Q6H PRN ORAL dyspepsia 03/07/17 18:00 04/05/17 17:59 Amlodipine Besylate (Norvasc) 5 mg DAILY ORAL 03/08/17 09:00 04/06/17 08:59 03/09/17 08:23 Dextrose (Dextrose 50%) STAT PRN IV Hypoglycemia 03/08/17 08:15 04/06/17 08:14 Diphenhydramine HCl (Benadryl) 25 mg Q6H PRN ORAL Itching/Pruritis 03/07/17 18:00 04/05/17 17:59 Docusate Sodium (Colace) 100 mg TWICE A DAY ORAL 03/08/17 09:00 04/07/17 08:59 03/09/17 08:22 Heparin Sodium (Porcine) (Heparin 5000 units/ml) 5,000 units EVERY 12 HOURS SUBQ 03/07/17 21:00 04/05/17 20:59 03/09/17 08:24 Ibuprofen (Motrin) 600 mg Q8H PRN ORAL For Pain 03/09/17 13:45 04/08/17 13:44 03/09/17 13:56 Insulin Aspart (NovoLOG) BEFORE MEALS AND HS SUBQ 03/07/17 16:30 04/05/17 20:59 03/08/17 16:31 Insulin Detemir (Levemir) 6 units DAILY SUBQ 03/09/17 09:30 04/08/17 09:29 03/09/17 08:53 Lisinopril (Prinivil) 20 mg DAILY ORAL 03/08/17 09:00 04/06/17 08:59 03/09/17 08:22 Nitroglycerin (Ntg) 0.4 mg Q5M X 3 DOSES PRN SL Prn Chest Pain 03/07/17 13:30 04/05/17 17:59 Ondansetron HCl (Zofran) 4 mg Q6H PRN IVP Nausea & Vomiting 03/07/17 18:00 04/05/17 17:59 Pantoprazole (Protonix) 40 mg DAILY ORAL 03/08/17 09:00 04/06/17 10:59 03/09/17 08:22 Polyethylene Glycol (Miralax) 17 gm BEDTIME ORAL 03/08/17 21:00 04/07/17 20:59 03/08/17 21:07 Polyethylene Glycol (Miralax) 17 gm HSPRN PRN ORAL Constipation 03/07/17 18:00 04/05/17 17:59 Sodium Chloride 1,000 ml @ 75 mls/hr [id number] IV 03/07/17 13:30 04/06/17 08:24 03/08/17 22:02 Tamsulosin HCl (Flomax) 0.4 mg DAILY ORAL 03/08/17 09:00 04/06/17 08:59 03/09/17 08:22 Temazepam (Restoril) 15 mg HSPRN PRN ORAL Insomnia 03/07/17 18:00 03/13/17 17:59 JAKOB TAY Mar 09, 2017 15:11
[2017-03-09] MEDS ORDERED: Norco 5mg/325mg tab ORAL ONE (15:15)
--- NOTE | 2017-03-09 20:48 | Diagnostic Imaging Report ---
APPROVED REPORT CPT Code: 06789 Present Symptoms Lower Extremity Pain: Bilateral BILATERAL: Imaging reveals a patent deep venous system bilaterally. There is no evidence of thrombus within the femoral, popliteal or tibial segments. The greater saphenous veins are also within normal limits. Doppler indicates normal spontaneous flow within these segments.
[2017-03-09] MEDS ORDERED: Piperacillin/Tazobactam 3.375 GM in D5W 55 ML IVPB SCH (22:00)
--- NOTE | 2017-03-10 09:10 | Discharge Summary ---
Discharge Summary Hospital Course Date of Admission Mar 06, 2017 at 17:36 Date of Discharge Mar 09, 2017 at 15:27 Admitting Diagnosis abdominal pain, dehydration, possible pancreatitis HPI Dale Sparrow is a 66 year old male who was admitted on Mar 06, 2017 at 17:36 for Abdominal Pain, Dehydration, Possible Pancreatitis Hospital Course dc summary #[id number] Discharge Medications Continued Medications: Amlodipine Besylate* (Amlodipine Besylate*) 5 Mg Tablet 5 MG ORAL DAILY, TAB Amoxicillin/Potassium Clav 500-125 Mg Tab* (Amox Tr-K Clv 500-125 Mg Tab*) 1 Each Tablet 1 TAB ORAL EVERY 8 HOURS for 5 Days, TAB Docusate Sodium* (Colace*) 100 Mg Capsule 100 MG ORAL BID, CAP Insulin Aspart* (Novolog*) 100 Unit/1 Ml Insuln.pen 0 SUBQ, #1 EA 0 Refills Insulin Glargine (Lantus) 100 Unit/1 Ml Insuln.pen 0 SUBQ BEDTIME, #1 EA 0 Refills Lisinopril* (Lisinopril*) 10 Mg Tablet 20 MG ORAL BID, TAB Tamsulosin HCl (Flomax) 0.4 Mg Cap.er.24h 0.4 MG ORAL DAILY, CAP Discontinued Medications: Folic Acid* (Folic Acid*) 1 Mg Tablet 1 MG ORAL DAILY, TAB Glimepiride* (Glimepiride*) 1 Mg Tablet 2 MG ORAL BEFORE BREAKFAST, TAB Hydrochlorothiazide* (Hydrochlorothiazide*) 50 Mg Tablet 50 MG ORAL DAILY, TAB Meclizine Hcl* (Meclizine*) 25 Mg Tablet 25 MG ORAL DAILY PRN for Nausea & Vomiting, TAB Methotrexate Sodium* (Methotrexate*) 2.5 Mg Tablet 5 MG PO TID, TAB Only on Wednesdays. Discharge Condition Upon Discharge: stable Discharge Disposition Patient was discharged to Home with Home Health() Discharge Diagnoses: Discharge Instructions Discharge Instructions Special Instructions I have been assigned to complete a D/C Summary on this account. I was not involved in the patient management Kori Falcon NP ([place]) Mar 10, 2017 09:10
--- NOTE | 2017-03-10 21:45 | Discharge Summary 2 SIG ---
DATE OF ADMISSION: 03/06/2017 DATE OF DISCHARGE: 03/09/2017 REASON FOR ADMISSION: A 66-year-old male with history of hypertension, diabetes, and rheumatoid arthritis, presented to emergency department with few days of intractable nausea and vomiting as well as abdominal pain. He reported emesis after eating or drinking fluids. No hematemesis. No bloody stool. He was able to tolerate his medications. No history of abdominal surgery. Workup in the emergency department revealed no fever. Mild tachycardia -108. No leukocytosis. Sodiu 133 and potassium -3.4. Stable renal parameters. Stable LFT and bilirubin. Troponin negative. Lipase was within normal limits. CT of the abdomen and pelvis revealed possible evidence of pancreatitis and recommended to correlate with the lipase. It also revealed nonobstructive stones in the right kidney, prostate enlargement, and mildly distended urinary bladder. EKG revealed normal sinus rhythm. No acute ischemic changes. The patient was admitted for further management for intractable nausea and vomiting, abdominal pain, pancreatic abnormality, and dehydration. HOSPITAL COURSE: The patient was admitted. The patient initially kept NPO, started on the IV fluids. GI consult was requested. The patient subsequently undergone abdominal ultrasound, which revealed no gallstones. No dilated ducts. It demonstrated nonobstructive right renal calyceal calculi seen on the CT as well. Pancreas was unremarkable. The patient was slowly advanced on the diet. Lipase and amylase were stable,within normal limits. LFTs were stable. Urinalysis revealed evidence of UTI. Urine culture grew Staph epidermidis and Strep group B. Infectious Disease specialist followed the patient. The patient was on IV antibiotic while in the hospital and changed to oral prior to discharge. Blood sugar was managed with sliding scale of insulin. Hemoglobin A1c - 8.9, not at goal. Stator Winder followed the patient. Blood sugar while in the hospital was managed with sliding scale of insulin and long-acting Levemir. Dose was titrated as per parts cataloger. The patient gradually advanced on the diet. Bowel regimen instituted. GI recommended outpatient colonoscopy. Pain resolved. Blood pressure was stable with SHELLEY inhibitor and calcium channel lavinia. DVT prophylaxis was provided. The patient was working with physical and occupational therapists. The patient was stable for discharge home with home health services. FINAL DIAGNOSES: 1. Intractable nausea and vomiting, resolved. 2. Dehydration. 3. Urinary tract infection with Staphylococcus epidermidis and Streptococci group B. 4. Diabetes mellitus. 5. Hypertension. 6. Rheumatoid arthritis. 7. Nephrolithiasis. DISCHARGE MEDICATIONS: See medication reconciliation list. DISCHARGE INSTRUCTIONS: The patient was discharged home with home health services. Follow up with primary medical doctor. Recommended sufficient fluid intake due to nephrolithiasis. Carlos Dutton D.O. I have been assigned to dictate discharge summary on this account and I was not involved in the patient's management. Kori Marinasalo N.PJoshua DR: Sierra JOB#: [id number] CC: WANDA
--- NOTE | 2017-03-15 16:11 | Cardiology Report ---
APPROVED REPORT EKG Measurement Heart [id number] Normal sinus rhythm Normal ECG
== END 2017-03-09 15:27 | disposition home or self-care (01) | DRG 439 ==
LOC: EMR 14:08 → EDBEDREQ 17:21 → 2E 17:36 → EDBEDREQ 18:56 → 2E 03-07 07:00 → 4E 03-07 13:25
DX: K85.90 Acute pancreatitis without necrosis or infection, unspecified (principal); N39.0 Urinary tract infection, site not specified; E11.65 Type 2 diabetes mellitus with hyperglycemia; I10 Essential (primary) hypertension; B95.7 Other staphylococcus as the cause of diseases classified elsewhere; B95.1 Streptococcus, group B, as the cause of diseases classified elsewhere; E86.0 Dehydration; M06.9 Rheumatoid arthritis, unspecified; R11.2 Nausea with vomiting, unspecified; N20.0 Calculus of kidney; Z79.4 Long term (current) use of insulin; R00.0 Tachycardia, unspecified; N40.0 Benign prostatic hyperplasia without lower urinary tract symptoms
CPT/HCPCS: 36415; 74177; 76700; 80048; 80053; 81001; 82150; 82962; 83036; 83690; 84443; 84484; 85025; 85610; 85730; 86850; 86900; 86901; 87086; 87181; 93005; 93970; 99285; J1815; J2405; J8499; S5561